=== PATIENT | female | born 1965 | race Caucasian/White ===

== ENCOUNTER 2017-01-18 12:32 | Emergency (ER) | payer MEDICAID ==
[2017-01-18 13:03] VITALS: BP 123/67
--- NOTE | 2017-01-18 13:14 | UC ---
UC General HPI - HPI Summary HPI Summary: poor po intake, decreased void, soft stool emesis this am, pale - History of Current Complaint Chief Complaint: UCGeneralIllness Stated Complaint: COUGH, FEVER, DIZZY Time Seen by Provider: 01/18/17 12:59 Hx Obtained From: Patient Onset/Duration: Sudden Onset, Lasting Days - 1, Still Present Timing: Constant Onset Severity: Moderate Current Severity: Moderate Associated Signs & Symptoms: Positive: Cough, Diarrhea - /soft stool, Vomiting - Allergy/Home Medications Allergies/Adverse Reactions: Allergies Allergy/AdvReac Type Severity Reaction Status Date / Time No Known Allergies Allergy Verified 01/18/17 14:50 PMH/Surg Hx/FS Hx/Imm Hx Previously Healthy: No - MR/DD Endocrine History: Hypothyroidism Psychological History: Depression - Surgical History Surgical History: None - Family History Known Family History: Positive: Unknown - Social History Occupation: Disabled Lives: [employer] Alcohol Use: None Substance Use Type: None Smoking Status (MU): Never Smoked Tobacco - Immunization History Most Recent Influenza Vaccination: unknown Review of Systems Constitutional: Fatigue Skin: Negative Eyes: Negative ENT: Negative Respiratory: Negative Cardiovascular: Negative Gastrointestinal: Vomiting, Diarrhea Genitourinary: Negative Motor: Negative Neurovascular: Negative Musculoskeletal: Negative Neurological: Negative Psychological: Negative Is Patient Immunocompromised?: No All Other Systems Reviewed And Are Negative: Yes Physical Exam Triage Information Reviewed: Yes Appearance: No Pain Distress, Ill-Appearing, Thin Vital Signs: Initial Vital Signs Temp 98.6 F 01/18/17 12:48 Pulse 73 01/18/17 12:48 Resp 18 01/18/17 12:48 BP 123/67 01/18/17 12:48 Pulse Ox 100 01/18/17 12:48 Vital Signs Reviewed: Yes Eye Exam: Normal Eyes: Positive: Conjunctiva Clear ENT Exam: Normal ENT: Positive: Normal ENT inspection, Hearing grossly normal, Pharynx normal, TMs normal, Muffled voice - non verbal, Uvula midline. Negative: Nasal drainage Dental Exam: Normal Neck exam: Normal Neck: Positive: Supple, Nontender, No Lymphadenopathy Respiratory Exam: Normal Respiratory: Positive: Chest non-tender, Lungs clear, Normal breath sounds, No respiratory distress, No accessory muscle use Cardiovascular Exam: Normal Cardiovascular: Positive: RRR, No Murmur, Pulses Normal, Brisk Capillary Refill Abdominal Exam: Normal Abdomen Description: Positive: Other: - appears to be aggitated with exam unable to specifically ascess pain Bowel Sounds: Positive: Present Musculoskeletal Exam: Normal Musculoskeletal: Positive: Strength Intact, ROM Intact, No Edema Neurological Exam: Normal Neurological: Positive: Alert - to her baseline Psychological Exam: Normal Skin Exam: Normal Course/Dx - Course Course Of Treatment: d/c with immediate follow up in ED for higher level evalution of patient c/o - Differential Dx - Multi-Symptom Provider Diagnoses: anemia Discharge - Discharge Plan Condition: Guarded Disposition: OTHER Discharge Disposition Comment: to [facility] [place] Patient Education Materials: Dehydration (ED) Referrals: Lona Gustafson NP [Nurse Practitioner] -
== END 2017-01-18 13:22 ==
LOC: UCEAST 12:32
DX: D64.9 Anemia, unspecified (principal)
CPT/HCPCS: 99211; G0463

== ENCOUNTER 2017-01-18 14:45 | Emergency (ER) | payer MEDICARE, MEDICAID ==
[2017-01-18] MEDS ORDERED: NS 0.9% 1000 ML* 1,000 ML IV ONE (15:12)
[2017-01-18] MEDS ORDERED: Metoclopramide IV* 5 MG/ML 2 ML VIAL IV SLOW PU ONE (15:15)
[2017-01-18] MEDS ORDERED: Haloperidol INJ IV/IM* 5 MG/ML AMP IM ONE (15:22)
[2017-01-18] MEDS ORDERED: LORazepam INJ* 2 MG/ML 1 ML VIAL IM ONE (15:23)
--- NOTE | 2017-01-18 15:39 | RAD ---
INDICATION: Fever COMPARISON: None TECHNIQUE: An AP portable view obtained at 1529 hours is submitted. FINDINGS: Bones/Soft Tissues: There are no acute bony findings. Cardiomediastinal: The cardiomediastinal silhouette is normal. Lungs: There are no infiltrates. Pleura: There are no pleural effusions. Other: None IMPRESSION: NO ACTIVE DISEASE.
[2017-01-18 16:44] LABS: Hematocrit 41 % (35-47); Hemoglobin 13.6 g/dl (12.0-16.0); Mean Corpuscular HGB Conc 33 g/dl (31-36); Mean Corpuscular Hemoglobin 33 pg (27-31); Mean Corpuscular Volume 99 fL (80-97); Mean Platelet Volume 9 um3 (7.4-10.4); Red Blood Count 4.15 10^6/ul (4.0-5.4); Red Cell Distribution Width 14 % (10.5-15); White Blood Count 8.2 10^3/ul (3.5-10.8)
[2017-01-18 16:56] LABS: ALT 16 U/L (7-52); AST 18 U/L (13-39); Albumin 3.4 g/dL (3.2-5.2); Alkaline Phosphatase 67 U/L (34-104); Amylase 14 U/L (29-103); Anion Gap 6 mmol/L (2-11); BUN/Creatinine Ratio 23.5 (8-20); Blood Urea Nitrogen 20 mg/dL (6-24); C Reactive Protein 54.78 mg/L (< 5.00); CO2 Carbon Dioxide 28 mmol/L (22-32); Calcium 8.5 mg/dL (8.6-10.3); Chloride 105 mmol/L (101-111); EGFR African American 90.3 (>60); EGFR Non-African American 70.2 (>60); Globulin 2.8 g/dL (2-4); Glucose 98 mg/dL (70-100); Lipase < 10 U/L (11.0-82.0); Magnesium 1.8 mg/dL (1.9-2.7); Potassium 3.8 mmol/L (3.5-5.0); Sodium 139 mmol/L (133-145); Total Protein 6.2 g/dL (6.4-8.9)
[2017-01-18 17:07] LABS: Urine Bacteria Absent (Absent); Urine Bilirubin Negative (Negative); Urine Glucose Negative (Negative); Urine Nitrite Negative (Negative)
[2017-01-18] MEDS ORDERED: Iohexol 300* (CONTRAST) 10 ML SDV IV ONE (17:19)
--- NOTE | 2017-01-18 18:18 | RAD ---
INDICATION: Abdominal pain COMPARISON: None TECHNIQUE: Axial source images were obtained from the hemidiaphragms to the symphysis pubis following administration of intravenous contrast only per ED request. This decreases the sensitivity of this examination. Coronal and sagittal reconstructed images were acquired. Lung bases: The lung bases are clear. Liver: The liver is normal in size. There are no masses. There is no ductal dilatation. Gallbladder: There are no calcified gallstones. There is no evidence of wall thickening or pericholecystic fluid. Spleen: The spleen is normal in size. There are no masses. Pancreas: There is no focal pancreatic mass or ductal dilatation. Adrenal glands: There is no evidence of adrenal mass. Kidneys: The kidneys are normal in size and position. There are prompt nephrograms and there is prompt excretion bilaterally. There are no renal parenchymal masses. There is no evidence of nephrolithiasis. Adenopathy: There is no evidence of adenopathy by size criteria. Fluid collections: There is a small amount of free fluid in the dependent portion of the pelvis. Vessels:There are no significant atherosclerotic changes involving the aorta. There is no focal aneurysm. The iliac vessels are normal in caliber. The IVC appears normal. GI tract: There are no acute CT bowel findings. There is no obstruction. The stomach and small bowel appear normal. The lower GI tract is normal. The cecum, ileocecal valve, and terminal ileum appear normal. The appendix is visualized and appear normal. Pelvic organs: The uterus and adnexa appear normal Bladder: There are no bladder masses. Abdominal and pelvic soft tissues: The extraperitoneal abdominal and pelvic soft tissues appear normal.. Osseous structures: There are no acute osseous findings. Other: None IMPRESSION: IMAGING WITHOUT ORAL CONTRAST SHOWS SMALL AMOUNT OF FREE FLUID IN THE CUL-DE-SAC. NO ADDITIONAL SPECIFIC CT FINDINGS.
[2017-01-18] MEDS ORDERED: Levofloxacin TAB* 250 MG PO ONE (18:29)
[2017-01-18] MEDS ORDERED: Levofloxacin TAB* 250 MG ONE (19:19)
[2017-01-18 19:29] VITALS: BP 90/57
--- NOTE | 2017-01-20 09:50 | PN ---
Progress Note - Progress Note Date of Service: 01/20/17 Note: Patient urine grew strept group B 25-50,000. likely a containment and not a significant amount culture. patient placed on levaquin which can continue.
--- NOTE | 2017-01-29 02:13 | ED ---
Magno Frye Thomas, scribed for Norma Mendieta MD on 01/18/17 at 1526 . GI/ HPI - HPI Summary HPI Summary: The pt is a 51 y/o F brought to the emergency department with nausea, vomiting, and diarrhea that began this AM. She has a history of Down Syndrome, is profoundly mentally retarded, and is minimally verbal. The HPI is obtained from her caregiver, who is present in the emergency room. She does not make her complaints known. The patient was given Tylenol this morning. Pt additionally has decreased PO intake, headache, cough, pallor, and fever. She lives at [facility] under respite care for the last 43 days. LEVEL FIVE CAVEAT: HPI LIMITED BY RETARDATION - History of Current Complaint Chief Complaint: EDGeneral Time Seen by Provider: 01/18/17 14:56 Stated Complaint: WEAKNESS COMING FROM CC Hx Obtained From: Family/Superintendent [employer] Hx From Patient Unobtainable Due To: Other - Retardation Onset/Duration: Started Hours Ago - onset this AM, Still Present Pain Intensity: 0 Associated Signs and Symptoms: Positive: Other: - N/V/D, decreased PO intake, CORONADO , cough, pallor, fever - Allergy/Home Medications Allergies/Adverse Reactions: Allergies Allergy/AdvReac Type Severity Reaction Status Date / Time No Known Allergies Allergy Verified 01/18/17 14:50 PMH/Surg Hx/FS Hx/Imm Hx Previously Healthy: No - LEVEL FIVE CAVEAT: PMH LIMITED BY RETARDATION Endocrine/Hematology History: Reports: Hx Thyroid Disease Neurological History: Reports: Other Neuro Impairments/Disorders - Hx Down syndrome Infectious Disease History: No Infectious Disease History: Denies: Traveled Outside the [place] in Last 30 Days - Family History Known Family History: Positive: Unknown - LEVEL FIVE CAVEAT: PMH LIMITED BY RETARDATION - Social History Lives: Snf Alcohol Use: None Substance Use Type: Reports: None Smoking Status (MU): Never Smoked Tobacco Review of Systems - ROS Summary Review of Systems Summary: LEVEL FIVE CAVEAT: ROS LIMITED BY RETARDATION Positive: Fever, Other - Pallor Positive: Cough Positive: Vomiting, Diarrhea, Nausea, Other - Decreased PO intake Positive: Headache All Other Systems Reviewed And Are Negative: No Physical Exam - Summary Physical Exam Summary: VITAL SIGNS: Reviewed. GENERAL: Patient is a female who is lying comfortable in the stretcher. Patient is not in any acute respiratory distress. HEAD AND FACE: No signs of trauma. No ecchymosis, hematomas or skull depressions. No sinus tenderness. EYES: PERRLA, EOMI x 2, No injected conjunctiva, no nystagmus. EARS: Hearing grossly intact. Ear canals and tympanic membranes are within normal limits. MOUTH: Oropharynx within normal limits. NECK: Supple, trachea is midline, no adenopathy, no JVD, no carotid bruit, no c- spine tenderness, neck with full ROM. CHEST: Symmetric, no tenderness at palpation LUNGS: Clear to auscultation bilaterally. No wheezing or crackles. CVS: Regular rate and rhythm, S1 and S2 present, no murmurs or gallops appreciated. ABDOMEN: Soft. She has tenderness over her abdomen, mainly her RLQ. No signs of distention. No rebound no guarding, and no masses palpated. Bowel sounds are normal. EXTREMITIES: FROM in all major joints, no edema, no cyanosis or clubbing. NEURO: No acute neurological deficits. Speech is at baseline. SKIN: Dry and warm LEVEL FIVE CAVEAT: PHYSICAL EXAM LIMITED BY RETARDATION Triage Information Reviewed: Yes Vital Signs On Initial Exam: Initial Vitals Temp Pulse Resp BP Pulse Ox 96.5 F 73 20 70/55 100 01/18/17 14:51 01/18/17 14:51 01/18/17 14:51 01/18/17 14:51 01/18/17 14:51 Vital Signs Reviewed: Yes Diagnostics - Vital Signs Vital Signs Temp Pulse Resp BP Pulse Ox 01/18/17 14:51 96.5 F 73 20 70/55 100 - Laboratory Result Diagrams: 01/18/17 16:29 01/18/17 16:29 Lab Statement: Any lab studies that have been ordered have been reviewed, and results considered in the medical decision making process. - Radiology CXR Xray Interpretation: No Acute Changes - No active disease. ED physician has reviewed this report and agrees. Radiology Interpretation Completed By: Radiologist EMIGDIO Course/Dx - Course Assessment/Plan: The pt is a 51 y/o F brought to the emergency department with nausea, vomiting, and diarrhea that began this AM. She has a history of Down Syndrome, is profoundly mentally retarded, and is minimally verbal. The HPI is obtained from her caregiver, who is present in the emergency room. She does not make her complaints known. The patient was given Tylenol this morning. Pt additionally has decreased PO intake, headache, cough, pallor, and fever. She lives at [facility] under respite care for the last 43 days. In the ED course the patient was given Haldol, IV fluids, Ativan, and Reglan. Bloodwork and urinalysis were obtained. CT Abd/Pel shows IMAGING WITHOUT ORAL CONTRAST SHOWS SMALL AMOUNT OF FREE FLUID IN THE CUL-DE-SAC. NO ADDITIONAL SPECIFIC CT FINDINGS. The patient is diagnosed with UTI. The patient is instructed to follow up with primary care. - Diagnoses Provider Diagnoses: UTI (urinary tract infection) Discharge - Discharge Plan Condition: Stable Disposition: HOME Prescriptions: Levofloxacin TAB* [Levaquin TAB*] 250 mg PO DAILY #7 tab Patient Education Materials: Urinary Tract Infection in Women (ED) Referrals: Lona Gustafson NP [Primary Care Provider] - 3 Days Additional Instructions: Follow up with your primary care physician in three days. Return to the emergency department for any new or worsening symptoms. The documentation as recorded by the Magno echols Thomas accurately reflects the service I personally performed and the decisions made by , Norma Mendieta MD.
== END 2017-01-18 19:33 | disposition home or self-care (01) ==
LOC: ED 14:45
DX: N39.0 Urinary tract infection, site not specified (principal); R11.2 Nausea with vomiting, unspecified; R19.7 Diarrhea, unspecified; R51 Headache; R05 Cough; R50.9 Fever, unspecified
CPT/HCPCS: 36415; 71010; 74177; 80053; 81003; 81015; 82150; 83605; 83690; 83735; 85025; 85610; 85730; 86140; 87040; 87077; 87086; 96372; 96374; 99284; A9270-GY; J1630; J2060; J2765; Q9967

== ENCOUNTER 2017-02-26 09:37 | Emergency (ER) | payer MEDICARE, MEDICAID ==
[2017-02-26] MEDS ORDERED: Acetaminophen TAB* 325 MG PO ONE (10:45)
--- NOTE | 2017-02-26 11:10 | RAD ---
INDICATION: Left hip pain and bruising COMPARISON: CT abdomen and pelvis dated January 18, 2017 TECHNIQUE: 3 views of the left hip were obtained. FINDINGS: The visualized bones of the left hip are well-corticated and properly aligned. The joint spaces are normal. There is no radiographic evidence of acute fracture or dislocation. IMPRESSION: Normal radiograph of the left hip. If the patient's symptoms persist follow-up imaging is recommended.
--- NOTE | 2017-02-26 11:48 | ED ---
Lower Extremity - HPI Summary HPI Summary: 51 female presents to ED with smoke room operator who states patient has been experiencing some pain with left hip while getting dressed today. States patient does fall sometimes however they do not know when or how. Patient is a new resident for the past month at [facility]. Staff noticed bruising on left hip 1 week ago. Physical Ther states it seemed to be slightly more uncomfortable and swollen today which is why they brought her in. Patient is non verbal and does not exhibit any pain. Able to bear weight and walk. No other complaints. Denies any fever/chills. Has not taken any medication. PMHx significant for down syndrome, bipolar, dementia and hypothyroid. = - History of Current Complaint Chief Complaint: EDExtremityLower Stated Complaint: LEFT HIP PAIN Hx Obtained From: Family/Physical Ther Mechanism Of Injury: Unknown Onset of Pain: Days Onset/Duration: Worse Since - this morning Severity Initially: Mild - while getting dressed this morning Severity Currently: None Pain Intensity: 0 Pain Scale Used: 0-10 Numeric Location: Is Discrete @ - left hip Character Of Pain: Sharp, Aching Associated Signs And Symptoms: Positive: Swelling, Bruising Aggravating Factor(s): Movement, Weight Bearing - favors right side Alleviating Factor(s): Rest Able to Bear Weight: Yes Legs: 1 - bruising - Allergies/Home Medications Allergies/Adverse Reactions: Allergies Allergy/AdvReac Type Severity Reaction Status Date / Time No Known Allergies Allergy Verified 01/18/17 14:50 PMH/Surg Hx/FS Hx/Imm Hx Endocrine/Hematology History: Reports: Hx Thyroid Disease Denies: Hx Diabetes Cardiovascular History: Denies: Hx Hypertension History: Denies: Hx Renal Disease Neurological History: Reports: Other Neuro Impairments/Disorders - Hx Down syndrome, dementia Psychiatric History: Reports: Hx Bipolar Disorder - Surgical History Surgery Procedure, Year, and Place: n/a - Immunization History Immunizations Up to Date: Yes Infectious Disease History: Unable to Obtain/Confirm Infectious Disease History: Denies: Traveled Outside the [place] in Last 30 Days - Family History Known Family History: Positive: Unknown - LEVEL FIVE CAVEAT: PMH LIMITED BY RETARDATION - Social History Alcohol Use: None Substance Use Type: Reports: None Smoking Status (MU): Never Smoked Tobacco Review of Systems Constitutional: Negative Cardiovascular: Negative Respiratory: Negative Positive: Arthralgia, Myalgia Positive: Bruising - left hip All Other Systems Reviewed And Are Negative: Yes Physical Exam Triage Information Reviewed: Yes Vital Signs On Initial Exam: Initial Vitals Temp Pulse Resp BP Pulse Ox 97.2 F 52 16 94/45 99 02/26/17 09:39 02/26/17 09:39 02/26/17 09:39 02/26/17 09:39 02/26/17 09:39 Vital Signs Reviewed: Yes Completion Of Physical Exam Limited Due To: Dementia, Altered Mental Status - due to down syndrome/condition Appearance: Positive: Well-Appearing, No Pain Distress, Well-Nourished Skin: Positive: Warm, Skin Color Reflects Adequate Perfusion, Dry, Other - contusion to left hip, appears to be in healing stage, green tinged color. Negative: Cold, Cyanosis @ Eyes: Positive: Conjunctiva Clear ENT: Positive: Hearing grossly normal, Pharynx normal Respiratory/Lung Sounds: Positive: Clear to Auscultation, Breath Sounds Present Cardiovascular: Positive: Normal, RRR, Pulses are Symmetrical in both Upper and Lower Extremities - 2+. Negative: Murmur, Rub Musculoskeletal: Positive: Normal, Strength/ROM Intact, Other - ecchymosis of left hip noted. Negative: Pain @, Edema Left, Edema Right Neurological: Positive: Normal - for patient, Sensory/Motor Intact, Reflexes Intact, NV Bundle Intact Distally, Normal Gait Diagnostics - Vital Signs Vital Signs Temp Pulse Resp BP Pulse Ox 02/26/17 09:39 97.2 F 52 16 94/45 99 - Laboratory Lab Statement: Any lab studies that have been ordered have been reviewed, and results considered in the medical decision making process. - Radiology left hip Xray Interpretation: No Acute Changes - Normal radiograph of the left hip. If the patient's symptoms persist follow-up imaging is recommended. Radiology Interpretation Completed By: Radiologist - myself Lower Extremity Course/Dx - Course Course Of Treatment: given tylenol and xray obtained, normal PE besides ecchymosis. negative xray. appears to be suffering from a contusion versus sprain. RICE and continue tylenol/ibuprofen for discomfort. Follow up with PCP. Aware of worsening signs and symptoms to watch out for. REquested a u/a so obtained and unremarkable. No concern for other etiolgoy at this time. Patient moving hip around normally. Normal vitals. - Diagnoses Differential Diagnosis/HQI/PQRI: Positive: Contusion, Fracture (Closed), Sprain , Strain Provider Diagnoses: Left hip pain, Contusion of left hip and thigh Discharge - Discharge Plan Condition: Stable Disposition: HOME Patient Education Materials: Contusion in Adults (ED), Hip Pain (ED) Referrals: Luci Abdi MD [Primary Care Provider] - Additional Instructions: Take tylenol/ibuprofen to help with discomfort. Rest, ice and elevate. Follow up with PCP for further evaluation and work up and recheck on symptoms. Any new or worsening symptoms please seek medical attention promptly.
[2017-02-26 12:01] LABS: Urine Appearance Cloudy; Urine Blood Negative (Negative); Urine Color Yellow; Urine Ketones Negative (Negative); Urine Protein Negative (Negative); Urine Specific Gravity 1.028 (1.010-1.030); Urine Urobilinogen Negative (Negative)
[2017-02-26 12:36] VITALS: BP 100/55
== END 2017-02-26 12:30 | disposition home or self-care (01) ==
LOC: ED 09:37
DX: S70.02XA Contusion of left hip, initial encounter (principal); S70.12XA Contusion of left thigh, initial encounter; X58.XXXA Exposure to other specified factors, initial encounter; Y92.9 Unspecified place or not applicable; Z91.81 History of falling; Q90.9 Down syndrome, unspecified; F03.90 Unspecified dementia, unspecified severity, without behavioral disturbance, psychotic disturbance, mood disturbance, and anxiety
CPT/HCPCS: 81003; 81015; 87086; 99282; A9270-GY

== ENCOUNTER 2017-02-27 17:37 | Emergency (ER) | payer MEDICARE, MEDICAID ==
[2017-02-27] MEDS ORDERED: Lidocaine 1%* 5 ML VIAL INJ ONE (20:20)
--- NOTE | 2017-02-27 20:22 | ED ---
Laceration/Wound HPI - HPI Summary HPI Summary: 51F presents with laceration to lower lip. She tripped and landed on her face and bit her lower lip. The caregiver denies any loose teeth. The caregiver states that he tooth went into her bottom lip. She has a flap of skin in her bottom lip. He caregiver denies any LOC or head injury. He states that she only bumped her chin. She has been acting normal per her caregiver. no vomiting. She has history of MR. She denies any pain. caregiver believes immunizations up to date. - History of Current Complaint Stated Complaint: FALL Time Seen by Provider: 02/27/17 20:10 Pain Intensity: 0 - Allergy/Home Medications Allergies/Adverse Reactions: Allergies Allergy/AdvReac Type Severity Reaction Status Date / Time No Known Allergies Allergy Verified 01/18/17 14:50 PMH/Surg Hx/FS Hx/Imm Hx Endocrine/Hematology History: Reports: Hx Thyroid Disease Denies: Hx Diabetes Cardiovascular History: Denies: Hx Hypertension History: Denies: Hx Renal Disease Neurological History: Reports: Other Neuro Impairments/Disorders - Hx Down syndrome, dementia Psychiatric History: Reports: Hx Bipolar Disorder - Surgical History Surgery Procedure, Year, and Place: n/a Infectious Disease History: No Infectious Disease History: Denies: Traveled Outside the [place] in Last 30 Days - Family History Known Family History: Positive: Unknown - LEVEL FIVE CAVEAT: PMH LIMITED BY RETARDATION - Social History Alcohol Use: None Substance Use Type: Reports: None Smoking Status (MU): Never Smoked Tobacco Review of Systems Negative: Fever Negative: Vomiting Positive: Other - lip laceration Negative: Headache All Other Systems Reviewed And Are Negative: Yes Physical Exam Triage Information Reviewed: Yes Vital Signs On Initial Exam: Initial Vitals Temp Pulse Resp BP Pulse Ox 98.7 F 78 20 128/78 99 02/27/17 17:47 02/27/17 17:47 02/27/17 17:47 02/27/17 17:47 02/27/17 17:47 Vital Signs Reviewed: Yes Appearance: Positive: Well-Appearing Skin: Positive: Warm, Dry, Other - 1cm flap like laceration on bottom lip Head/Face: Positive: Normal Head/Face Inspection, Other - no step off, raccoon eyes, delarosa sign, nontender jaw Eyes: Positive: Normal, EOMI, DIONNA, Conjunctiva Clear ENT: Positive: Normal ENT inspection, Pharynx normal, TMs normal Respiratory/Lung Sounds: Positive: Clear to Auscultation, Breath Sounds Present Cardiovascular: Positive: Normal, RRR Musculoskeletal: Positive: Normal Neurological: Positive: Sensory/Motor Intact, CN Intact II-III Procedures - Laceration/Wound Repair 1 Location: Other - lower lip laceration Description: Irregular Anesthesia: Lido - cedicaine topical Length, Depth and Shape: 1cm flap like Irrigated w/ Saline (ccs): 50 Laceration/Wound Explored: clean Closure: Single Layer Suture Type: Other - biosyn Number of Sutures: 2 Layer Closure?: No Diagnostics - Vital Signs Vital Signs Temp Pulse Resp BP Pulse Ox 02/27/17 19:49 97.7 F 75 16 116/89 99 02/27/17 17:47 98.7 F 78 20 128/78 99 - Laboratory Lab Statement: Any lab studies that have been ordered have been reviewed, and results considered in the medical decision making process. Laceration Repair Course/Dx - Course Course Of Treatment: 51F presents with laceration to lower lip. She tripped and landed on her face and bit her lower lip. The caregiver denies any loose teeth. The caregiver states that he tooth went into her bottom lip. She has a flap of skin in her bottom lip. He caregiver denies any LOC or head injury. He states that she only bumped her chin. She has been acting normal per her caregiver. no vomiting. She has history of MR. She denies any pain. caregiver believes immunizations up to date. on exam has 1cm flap like laceration of lower lip. attempted to place sutures and patient moved too much. used some intranasal versdad and placed 2 sutures in wound. caregiver understand and agrees with plan. - Differential Dx Differental Diagnoses: Abrasion, Avulsion, Laceration - Clinical Impression Provider Diagnoses: Lip laceration Discharge - Discharge Plan Condition: Good Disposition: HOME Patient Education Materials: Care For Your Absorbable Stitches (ED) Referrals: Luci Abdi MD [Primary Care Provider] - Additional Instructions: keep area clean Avoid acidic foods for next 5 days If can get to use mouth wash use it twice a day or use salt water to clean area Sutures will fall off on own follow up with primary within 5 days Return to ED if develop any new or worsening symptoms
[2017-02-27] MEDS ORDERED: Midazolam concentrated* 5 MG/ML 1 ml VIAL INTRANASAL ONE ×2 (21:12→21:28)
[2017-02-27 21:56] VITALS: BP 116/84
== END 2017-02-27 21:55 | disposition home or self-care (01) ==
LOC: ED 17:37
DX: S01.511A Laceration without foreign body of lip, initial encounter (principal); W19.XXXA Unspecified fall, initial encounter; Y92.9 Unspecified place or not applicable
CPT/HCPCS: 12011; 96374; 99281; J2250

== ENCOUNTER 2017-05-14 18:28 | Emergency (ER) | payer MEDICARE, MEDICAID ==
[2017-05-14] MEDS ORDERED: Tetan/Diph/Pertus SYR(Tdap)* 0.5 ML SYR(BOOSTRIX) use SYR IM ONE (20:28)
--- NOTE | 2017-05-14 20:32 | UC ---
Laceration HPI - HPI Summary HPI Summary: 51 female presents ED brought in by caregiver with complaints of a inside bottom lip laceration that she sustained just prior to arrival. Caregiver states patient tripped from a standing position landing on knees and then hitting chin on the floor causing a lip laceration from tooth. Denies any head trauma or loss of consciousness. Admits to bleeding. [facility] last tetanus is updated in 2009 according to patient's files. States had a lip laceration back in July 2016 similar. Patient is acting herself no vomiting and no other signs of trauma. Bleeding has since stopped. He did not loose teeth does not appear to have any loose teeth. Patient has history of MR and Down syndrome. No acute complaints. - History Of Current Complaint Chief Complaint: EDLacSutureRecheck Stated Complaint: FALL/MOUTH INJURY Time Seen by Provider: 05/14/17 19:44 Hx Obtained From: Family/Fuel Cell Binder - Caregiver patient lives at [facility] Laceration Location: Face - Bottom lip Mechanism Of Injury: Sharp Trauma - 2 Onset/Duration: Sudden Onset Pain Intensity: 0 Pain Scale Used: 0-10 Numeric Aggravating Factors: Nothing - Allergies/Home Medications Allergies/Adverse Reactions: Allergies Allergy/AdvReac Type Severity Reaction Status Date / Time No Known Allergies Allergy Verified 05/14/17 18:37 PMH/Surg Hx/FS Hx/Imm Hx - Additional Past Medical History Additional PMH: Past medical history: MR and Down syndrome - Surgical History Surgical History: None Surgery Procedure, Year, and Place: n/a - Family History Known Family History: Positive: Unknown - LEVEL FIVE CAVEAT: PMH LIMITED BY RETARDATION - Social History Alcohol Use: None Substance Use Type: None Smoking Status (MU): Never Smoked Tobacco - Immunization History Most Recent Influenza Vaccination: 2009, updated today 05/14/2017 Review of Systems Constitutional: Negative Skin: Other - Lip laceration Respiratory: Negative Gastrointestinal: Negative All Other Systems Reviewed And Are Negative: Yes Physical Exam Triage Information Reviewed: Yes Appearance: Well-Appearing, No Pain Distress, Well-Nourished Vital Signs: Initial Vital Signs Temp 97.7 F 05/14/17 18:31 Pulse 58 05/14/17 18:31 Resp 18 05/14/17 18:31 BP 157/86 05/14/17 18:31 Pulse Ox 100 05/14/17 18:31 Vital Signs Reviewed: Yes Eyes: Positive: Conjunctiva Clear ENT: Positive: Pharynx normal, TMs normal, Uvula midline Dental: Positive: Other: - Moist oral mucosa, dried blood noted on bottom lip, small 0.5 cm linear laceration, possible piece missing at inside of bottom lip no active bleeding difficult to examine due to patient and cooperative at times , dentition appear intact and normal. It is not full thickness and does not go all the way through, appears superficial. No active bleeding or worsening condition when manipulated Neck: Positive: Supple, Nontender Respiratory: Positive: Chest non-tender, Lungs clear, Normal breath sounds, No respiratory distress, No accessory muscle use. Negative: Crackles, Rhonchi, Wheezing Cardiovascular: Positive: RRR, No Murmur, Pulses Normal Musculoskeletal: Positive: Strength Intact, ROM Intact Neurological: Positive: Alert Skin Exam: Normal Laceration Course/Dx - Course/Dx Course Of Treatment: Attempted to irrigate laceration. Patient was not cooperative with physical exam and treatment. Discussed options with caregiver and spoke with Dr. Conner about case. On agreement that patient's laceration/ wound would heal without complication if it was not sutured. Appeared to be patient's best interest due to cooperativeness to leave laceration to heal on its own as it did not appear to be imperative to be sutured. Laceration was small and superficial without active bleeding. Swish with salt water, good oral hygiene, gentle with brushing, increase fluid intake, do not touch, swish and spell after eating and ibuprofen for pain and inflammation along with ice. Aware worsening signs and symptoms to watch out for. Follow-up with PCP in 2 days to ensure improvement. Tetanus was updated At visit. No Concerns of other trauma at this time - Differential Dx - Laceration/Wound Differental Diagnoses: Abrasion, Avulsion, Laceration Provider Diagnoses: Lip laceration - Physician Notification/Consults Discussed Patient Care With: Dr. Conner Discharge - Sign-Out/Discharge Documenting (check all that apply): Discharge - Discharge Plan Condition: Stable Disposition: HOME Patient Education Materials: Laceration (ED) Referrals: Luci Abdi MD [Primary Care Provider] - Additional Instructions: Salt water swishes. Ibuprofen for pain and inflammation. Ice for swelling. Swish an after eating. Gentle with cleaning/pressure. Avoid touch. Any new or worsening symptoms please seek medical attention. Follow up with PCP in 3 days to ensure improvement. Tetanus was updated today 05/14/2017. - Billing Disposition and Condition Condition: STABLE Disposition: HOME
[2017-05-14 20:51] VITALS: BP 0/0
== END 2017-05-14 20:50 | disposition home or self-care (01) ==
LOC: ED 18:28
DX: S01.511A Laceration without foreign body of lip, initial encounter (principal); W01.198A Fall on same level from slipping, tripping and stumbling with subsequent striking against other object, initial encounter; Y92.9 Unspecified place or not applicable; Z23 Encounter for immunization; Q90.9 Down syndrome, unspecified; F79 Unspecified intellectual disabilities
CPT/HCPCS: 90471; 90715; 99282; G0008

== ENCOUNTER 2017-05-15 11:15 | Emergency (ER) | payer MEDICARE, MEDICAID ==
[2017-05-15] MEDS ORDERED: LORazepam INJ* 2 MG/ML 1 ML VIAL IV ONE (12:01)
[2017-05-15] MEDS ORDERED: diPHENhydraMINE IV* 50 MG/ML 1 ml VIAL (BENADRYL) IM ONE (12:01)
[2017-05-15] MEDS ORDERED: Haloperidol INJ IV/IM* 5 MG/ML AMP IM ONE (12:01)
[2017-05-15] MEDS ORDERED: LORazepam INJ* 2 MG/ML 1 ML VIAL IM ONE (12:21)
[2017-05-15 13:04] LABS: ABS Basophils 0.1 10^3/ul (0-0.2); ABS Eosinophils 0 10^3/ul (0-0.6); ABS Monocytes 0.3 10^3/ul (0-0.8); ABS Neutrophils 4.5 10^3/ul (1.5-7.7); ABS Nucleated RBC 0 10^3/ul; Eosinophil % 0.5 % (0-6); Hematocrit 41 % (35-47); Hemoglobin 13.4 g/dl (12.0-16.0); Lymphocyte % 29.3 % (25-47); Mean Corpuscular HGB Conc 33 g/dl (31-36); Mean Corpuscular Hemoglobin 34 pg (27-31); Mean Corpuscular Volume 103 fL (80-97); Mean Platelet Volume 8.9 um3 (7.4-10.4); Nucleated Red Blood Cells % 0.1; Platelet Count 220 10^3/ul (150-450); Red Blood Count 3.95 10^6/ul (4.0-5.4); Red Cell Distribution Width 15 % (10.5-15)
[2017-05-15 13:14] LABS: INR 0.94 (0.77-1.02)
--- NOTE | 2017-05-15 13:20 | RAD ---
HISTORY: Repeated falls COMPARISONS: December 22, 2016 VIEWS: 1: frontal portable view of the chest at 1:05 PM FINDINGS: LINES AND TUBES: None. CARDIOMEDIASTINAL SILHOUETTE: The cardiomediastinal silhouette is normal for portable technique. PLEURA: The costophrenic angles are sharp. No pleural abnormalities are noted. LUNG PARENCHYMA: The lungs are clear. ABDOMEN: The upper abdomen is clear. There is no subphrenic gas. BONES AND SOFT TISSUES: No bone or soft tissue abnormalities are noted. IMPRESSION: NO ACTIVE CARDIOPULMONARY DISEASE.
[2017-05-15 13:25] LABS: EGFR Non-African American 62.5 (>60)
--- NOTE | 2017-05-15 14:26 | RAD ---
HISTORY: Multiple falls, altered mental status COMPARISONS: None TECHNIQUE: Multiple contiguous axial CT scans were obtained of the head without intravenous contrast. FINDINGS: HEMORRHAGE/INFARCT: There is no hemorrhage or acute infarct. MASSES/SHIFT: There is no mass or shift. EXTRA-AXIAL SPACES: There are no extra-axial fluid collections. SULCI AND VENTRICLES: There is mild diffuse enlargement of the sulci and ventricles. There is somewhat disproportionate enlargement of the ventricular system with suspected the sulcal atrophy. CEREBRUM: There are no focal parenchymal abnormalities. BRAINSTEM: There are no focal parenchymal abnormalities. CEREBELLUM: There are no focal parenchymal abnormalities. VESSELS: The vessels are grossly normal. PARANASAL SINUSES: Sinuses are atelectatic bilaterally with opacification bilaterally. ORBITS: The orbits are unremarkable. BONES AND SOFT TISSUE: No bone or soft tissue abnormalities are noted. OTHER: None IMPRESSION: 1. NO ACUTE INTRACRANIAL PATHOLOGY. 2. THERE IS DISPROPORTIONATE ENLARGEMENT OF THE VENTRICULAR SYSTEM WITH RESPECT TO THE SULCI, WHICH MAY INDICATE THE PRESENCE OF AN ADULT ONSET COMMUNICATING HYDROCEPHALUS, INCLUDING NORMAL PRESSURE HYDROCEPHALUS, AND THE CORRECT CLINICAL SETTING. 3. CHRONIC BILATERAL MAXILLARY SINUSITIS
[2017-05-15 16:52] LABS: Urine Appearance Clear; Urine Blood Negative (Negative); Urine Color Straw; Urine Ketones Negative (Negative); Urine Protein Negative (Negative); Urine Specific Gravity 1.008 (1.010-1.030); Urine Urobilinogen Negative (Negative)
--- NOTE | 2017-05-15 18:18 | ED ---
Jose Martin Frye Jennifer, scribed for Cr Conner on 05/15/17 at 1203 . Neurological HPI - HPI Summary HPI Summary: The patient is a 51 year old female who presents with multiple falls this morning. The patients manager pipeline explains that their nurse called Dr. Hernández, neurology, who sent the patient to the ED. The manager pipeline explains that the patient occasionally falls, but she fell four times this morning and once last night that cause her to hurt her lip. LEVEL 5 CAVEAT: HPI LIMITED DUE TO PT DEMENTIA. - History of Current Complaint Chief Complaint: EDGeneral Stated Complaint: FALLS-DR SENT Time Seen by Provider: 05/15/17 11:51 Hx Obtained From: Family/Pigment Pusher Hx From Patient Unobtainable Due To: Dementia Onset/Duration: Still Present Timing: Intermittent Episodes Lasting: - 4 FALLS this morning Pain Intensity: 2 Pain Scale Used: 0-10 Numeric - Allergy/Home Medications Allergies/Adverse Reactions: Allergies Allergy/AdvReac Type Severity Reaction Status Date / Time No Known Allergies Allergy Verified 05/15/17 11:24 Home Medications: Home Medications Acetaminophen TAB* [Tylenol TAB*] 650 mg PO Q6H PRN 05/15/17 [History Confirmed 05/15/17] Cholecalciferol (Vitamin D3) [Vitamin D3] 1,000 unit PO DAILY 05/15/17 [History Confirmed 05/15/17] Citalopram TAB* [CeleXA TAB*] 40 mg PO DAILY 05/15/17 [History Confirmed ] Guaifenesin/Dextromethorphan [Tussin Dm Cough Syrup] 5 ml PO Q4HR PRN 05/15/17 [ History Confirmed 05/15/17] LORazepam TAB(*) [Ativan 1 MG TAB (*)] 1 mg PO ONCE PRN 05/15/17 [History Confirmed 05/15/17] LORazepam [Ativan] 2 mg PO DAILY PRN 05/15/17 [History Confirmed 05/15/17] Levothyroxine TAB* [Synthroid TAB*] 75 mcg PO DAILY 05/15/17 [History Confirmed 05/15/17] LoraTADine TAB(NF) [Claritin 10 MG TAB(NF)] 10 mg PO DAILY 05/15/17 [History Confirmed 05/15/17] Melatonin 5 mg SL BEDTIME PRN 05/15/17 [History Confirmed 05/15/17] Simvastatin TAB(NF) [Zocor(NF)] 10 mg PO DAILY 05/15/17 [History Confirmed 05/15] carBAMazepine ER TAB(*) [TEGretol Xr TAB(*)] 200 mg PO BID 05/15/17 [History Confirmed 05/15/17] risperiDONE [Risperidone] 0.25 mg PO BID 05/15/17 [History Confirmed 05/15/17] PMH/Surg Hx/FS Hx/Imm Hx Endocrine/Hematology History: Reports: Hx Thyroid Disease Denies: Hx Diabetes Cardiovascular History: Denies: Hx Hypertension History: Denies: Hx Renal Disease Neurological History: Reports: Other Neuro Impairments/Disorders - Hx Down syndrome, dementia Psychiatric History: Reports: Hx Bipolar Disorder - Surgical History Surgery Procedure, Year, and Place: n/a - Immunization History Date of Tetanus Vaccine: 2009 Infectious Disease History: No Infectious Disease History: Denies: Traveled Outside the [place] in Last 30 Days - Family History Known Family History: Positive: Unknown - LEVEL FIVE CAVEAT: PMH LIMITED BY RETARDATION - Social History Alcohol Use: None Substance Use Type: Reports: None Smoking Status (MU): Never Smoked Tobacco Review of Systems ENT: Other - Abrasion on lip Neurological: Other - Falls All Other Systems Reviewed And Are Negative: Yes - Comments Additional Review of Systems Comments: LEVEL 5 CAVEAT: ROS LIMITED DUE TO PT DEMENTIA. Physical Exam - Summary Physical Exam Summary: Appearance: Well appearing, no pain distress Skin: warm, dry, reflects adequate perfusion Head/face: abrasion over the lips Eyes: EOMI, DIONNA ENT: normal Neck: supple, non-tender Respiratory: CTA, breath sounds present Cardiovascular: RRR, pulses symmetrical ~ Abdomen: non-tender, soft Bowel: present Musculoskeletal: normal, strength/ROM intact Neuro: normal, sensory motor intact, alert and confused Triage Information Reviewed: Yes Vital Signs On Initial Exam: Initial Vitals Temp Pulse Resp BP Pulse Ox 97.0 F 63 16 154/59 99 05/15/17 11:24 05/15/17 11:24 05/15/17 11:24 05/15/17 11:24 05/15/17 11:24 Vital Signs Reviewed: Yes Diagnostics - Vital Signs Vital Signs Temp Pulse Resp BP Pulse Ox 05/15/17 11:24 97.0 F 63 16 154/59 99 - Laboratory Lab Results: Lab Results 05/15/17 05/15/17 05/15/17 Range/Units 12:45 12:45 12:45 WBC (3.5-10.8) 10^3/ul RBC (4.0-5.4) 10^6/ul Hgb (12.0-16.0) g/dl Hct (35-47) % MCV (80-97) fL MCH (27-31) pg MCHC (31-36) g/dl RDW (10.5-15) % Plt Count (150-450) 10^3/ul MPV (7.4-10.4) um3 Neut % (Auto) (38-83) % Lymph % (Auto) (25-47) % [place] % (Auto) (0-7) % Eos % (Auto) (0-6) % Baso % (Auto) (0-2) % Absolute Neuts (auto) (1.5-7.7) 10^3/ul Absolute Lymphs (auto) (1.0-4.8) 10^3/ul Absolute Monos (auto) (0-0.8) 10^3/ul Absolute Eos (auto) (0-0.6) 10^3/ul Absolute Basos (auto) (0-0.2) 10^3/ul Absolute Nucleated RBC 10^3/ul Nucleated RBC % INR (Anticoag Therapy) 0.94 (0.77-1.02) APTT 33.1 (26.0-36.3) seconds Sodium 135 L (139-145) mmol/L Potassium TNP Chloride 103 (101-111) mmol/L Carbon Dioxide 24 (22-32) mmol/L Anion Gap 8 (2-11) mmol/L BUN 25 H (6-24) mg/dL Creatinine 0.94 (0.51-0.95) mg/dL Est GFR ( Amer) 80.4 (>60) Est GFR (Non-Af Amer) 62.5 (>60) BUN/Creatinine Ratio 26.6 H (8-20) Glucose 93 (70-100) mg/dL Lactic Acid (0.5-2.0) mmol/L Calcium 9.3 (8.6-10.3) mg/dL Magnesium TNP Total Bilirubin 0.20 (0.2-1.0) mg/dL AST TNP ALT 32 (7-52) U/L Alkaline Phosphatase 85 (34-104) U/L Total Creatine Kinase 120 (10-223) U/L Troponin I 0.00 (<0.04) ng/mL B-Natriuretic Peptide 58 ( - 100) pg/mL Total Protein 6.9 (6.4-8.9) g/dL Albumin 3.6 (3.2-5.2) g/dL Globulin 3.3 (2-4) g/dL Albumin/Globulin Ratio 1.1 (1-3) TSH 49.48 H (0.34-5.60) mcIU/mL Urine Color Urine Appearance Urine pH (5-9) Ur Specific [place] (1.010-1.030) Urine Protein (Negative) Urine Ketones (Negative) Urine Blood (Negative) Urine Nitrate (Negative) Urine Bilirubin (Negative) Urine Urobilinogen (Negative) Ur Leukocyte Esterase (Negative) Urine Glucose (Negative) Urine Ascorbic Acid (Negative) 05/15/17 05/15/17 05/15/17 Range/Units 12:45 12:45 14:04 WBC 7.0 (3.5-10.8) 10^3/ul RBC 3.95 L (4.0-5.4) 10^6/ul Hgb 13.4 (12.0-16.0) g/dl Hct 41 (35-47) % MCV 103 H (80-97) fL MCH 34 H (27-31) pg MCHC 33 (31-36) g/dl RDW 15 (10.5-15) % Plt Count 220 (150-450) 10^3/ul MPV 8.9 (7.4-10.4) um3 Neut % (Auto) 63.9 (38-83) % Lymph % (Auto) 29.3 (25-47) % [place] % (Auto) 4.8 (0-7) % Eos % (Auto) 0.5 (0-6) % Baso % (Auto) 1.5 (0-2) % Absolute Neuts (auto) 4.5 (1.5-7.7) 10^3/ul Absolute Lymphs (auto) 2.0 (1.0-4.8) 10^3/ul Absolute Monos (auto) 0.3 (0-0.8) 10^3/ul Absolute Eos (auto) 0 (0-0.6) 10^3/ul Absolute Basos (auto) 0.1 (0-0.2) 10^3/ul Absolute Nucleated RBC 0 10^3/ul Nucleated RBC % 0.1 INR (Anticoag Therapy) (0.77-1.02) APTT (26.0-36.3) seconds Sodium (139-145) mmol/L Potassium 3.7 Chloride (101-111) mmol/L Carbon Dioxide (22-32) mmol/L Anion Gap (2-11) mmol/L BUN (6-24) mg/dL Creatinine (0.51-0.95) mg/dL Est GFR ( Amer) (>60) Est GFR (Non-Af Amer) (>60) BUN/Creatinine Ratio (8-20) Glucose (70-100) mg/dL Lactic Acid 1.4 (0.5-2.0) mmol/L Calcium (8.6-10.3) mg/dL Magnesium 2.2 Total Bilirubin (0.2-1.0) mg/dL AST 30 ALT (7-52) U/L Alkaline Phosphatase (34-104) U/L Total Creatine Kinase (10-223) U/L Troponin I (<0.04) ng/mL B-Natriuretic Peptide ( - 100) pg/mL Total Protein (6.4-8.9) g/dL Albumin (3.2-5.2) g/dL Globulin (2-4) g/dL Albumin/Globulin Ratio (1-3) TSH (0.34-5.60) mcIU/mL Urine Color Urine Appearance Urine pH (5-9) Ur Specific [place] (1.010-1.030) Urine Protein (Negative) Urine Ketones (Negative) Urine Blood (Negative) Urine Nitrate (Negative) Urine Bilirubin (Negative) Urine Urobilinogen (Negative) Ur Leukocyte Esterase (Negative) Urine Glucose (Negative) Urine Ascorbic Acid (Negative) 05/15/17 Range/Units 16:36 WBC (3.5-10.8) 10^3/ul RBC (4.0-5.4) 10^6/ul Hgb (12.0-16.0) g/dl Hct (35-47) % MCV (80-97) fL MCH (27-31) pg MCHC (31-36) g/dl RDW (10.5-15) % Plt Count (150-450) 10^3/ul MPV (7.4-10.4) um3 Neut % (Auto) (38-83) % Lymph % (Auto) (25-47) % [place] % (Auto) (0-7) % Eos % (Auto) (0-6) % Baso % (Auto) (0-2) % Absolute Neuts (auto) (1.5-7.7) 10^3/ul Absolute Lymphs (auto) (1.0-4.8) 10^3/ul Absolute Monos (auto) (0-0.8) 10^3/ul Absolute Eos (auto) (0-0.6) 10^3/ul Absolute Basos (auto) (0-0.2) 10^3/ul Absolute Nucleated RBC 10^3/ul Nucleated RBC % INR (Anticoag Therapy) (0.77-1.02) APTT (26.0-36.3) seconds Sodium (139-145) mmol/L Potassium Chloride (101-111) mmol/L Carbon Dioxide (22-32) mmol/L Anion Gap (2-11) mmol/L BUN (6-24) mg/dL Creatinine (0.51-0.95) mg/dL Est GFR ( Amer) (>60) Est GFR (Non-Af Amer) (>60) BUN/Creatinine Ratio (8-20) Glucose (70-100) mg/dL Lactic Acid (0.5-2.0) mmol/L Calcium (8.6-10.3) mg/dL Magnesium Total Bilirubin (0.2-1.0) mg/dL AST ALT (7-52) U/L Alkaline Phosphatase (34-104) U/L Total Creatine Kinase (10-223) U/L Troponin I (<0.04) ng/mL B-Natriuretic Peptide ( - 100) pg/mL Total Protein (6.4-8.9) g/dL Albumin (3.2-5.2) g/dL Globulin (2-4) g/dL Albumin/Globulin Ratio (1-3) TSH (0.34-5.60) mcIU/mL Urine Color Straw Urine Appearance Clear Urine pH 6.0 (5-9) Ur Specific [place] 1.008 L (1.010-1.030) Urine Protein Negative (Negative) Urine Ketones Negative (Negative) Urine Blood Negative (Negative) Urine Nitrate Negative (Negative) Urine Bilirubin Negative (Negative) Urine Urobilinogen Negative (Negative) Ur Leukocyte Esterase Negative (Negative) Urine Glucose Negative (Negative) Urine Ascorbic Acid * A (Negative) Result Diagrams: 05/15/17 12:45 05/15/17 14:04 Lab Statement: Any lab studies that have been ordered have been reviewed, and results considered in the medical decision making process. - Radiology CXR Xray Interpretation: No Acute Changes - NO ACTIVE CARDIOPULMONARY DISEASE. Dr. Conner has reviewed this report. Radiology Interpretation Completed By: Radiologist - CT Brain CT CT Interpretation: No Acute Changes - 1. NO ACUTE INTRACRANIAL PATHOLOGY. 2. THERE IS DISPROPORTIONATE ENLARGEMENT OF THE VENTRICULAR SYSTEM WITH RESPECT TO THE SULCI, WHICH MAY INDICATE THE PRESENCE OF AN ADULT ONSET COMMUNICATING HYDROCEPHALUS, INCLUDING NORMAL PRESSURE HYDROCEPHALUS, AND THE CORRECT CLINICAL SETTING. 3. CHRONIC BILATERAL MAXILLARY SINUSITIS. Dr. Conner has reviewed this report. CT Interpretation Completed By: Radiologist - EKG 13:29 Cardiac Rate: Bradycardia EKG Rhythm: Sinus Bradycardia - 57 BPM EKG Interpretation: nonspecific ST-T changes Course/Dx - Course Course Of Treatment: The patient is a 51 year old female who presents with multiple falls this morning. She has a history of dementia and down syndrome. Bloodwork was obtained. EKG, CXR, and CT Brain were obtained. The patient is diagnosed with falls and hypothyroidism. Patient is instructed to follow up with PCP in 3 days. - Differential Dx Differential Diagnoses Neuro: Positive: Other - falls/down syndrome - Diagnoses Provider Diagnoses: Falls, Hypothyroidism, Down syndrome - Critical Care Time Critical Care Time: 30-74 min Discharge - Sign-Out/Discharge Documenting (check all that apply): Discharge - Discharge Plan Condition: Stable Disposition: HOME Patient Education Materials: Hypothyroidism (ED), Fall Prevention (ED) Referrals: Luci Abdi MD [Primary Care Provider] - 3 Days Additional Instructions: Please note: Your TSH level is high. Please follow up with your primary care physician to adjust the medications. Follow up with your primary care physician in three days. Return to the emergency department for any new or worsening symptoms. - Billing Disposition and Condition Condition: STABLE Disposition: HOME The documentation as recorded by the Jose Martin echols Jennifer accurately reflects the service I personally performed and the decisions made by , Cr Conner.
[2017-05-15 18:35] VITALS: BP 00/00
== END 2017-05-15 18:48 | disposition home or self-care (01) ==
LOC: ED 11:15
DX: S00.511A Abrasion of lip, initial encounter (principal); W19.XXXA Unspecified fall, initial encounter; Y93.9 Activity, unspecified; Y92.9 Unspecified place or not applicable; R29.6 Repeated falls; R00.1 Bradycardia, unspecified; J32.0 Chronic maxillary sinusitis; E03.9 Hypothyroidism, unspecified; Q90.9 Down syndrome, unspecified; F03.90 Unspecified dementia, unspecified severity, without behavioral disturbance, psychotic disturbance, mood disturbance, and anxiety; F31.9 Bipolar disorder, unspecified
CPT/HCPCS: 36415; 70450; 71045; 80053; 81003; 82550; 83605; 83735; 83880; 84443; 84484; 85025; 85610; 85730; 93005; 96372; 99282; J1200; J1630; J2060

== ENCOUNTER 2017-06-05 09:36 | Emergency (ER) | payer MEDICARE, MEDICAID ==
[2017-06-05] MEDS ORDERED: LORazepam INJ* 2 MG/ML 1 ML VIAL IM ONE (09:59)
[2017-06-05] MEDS ORDERED: Acetaminophen TAB* 325 MG PO ONE (10:01)
--- NOTE | 2017-06-05 11:00 | RAD ---
HISTORY: Cough, fever COMPARISONS: May 15, 2017 VIEWS: 1: frontal portable view of the chest at 10:30 AM FINDINGS: LINES AND TUBES: None. CARDIOMEDIASTINAL SILHOUETTE: The cardiomediastinal silhouette is normal for portable technique. PLEURA: The costophrenic angles are sharp. No pleural abnormalities are noted. LUNG PARENCHYMA: The lungs are clear. ABDOMEN: The upper abdomen is clear. There is no subphrenic gas. BONES AND SOFT TISSUES: No bone or soft tissue abnormalities are noted. IMPRESSION: NO ACTIVE CARDIOPULMONARY DISEASE.
[2017-06-05] MEDS ORDERED: Levofloxacin TAB* 250 MG PO ONE (11:01)
[2017-06-05] MEDS ORDERED: DOXYcycline CAP(*) 100 MG PO ONE (11:02)
--- NOTE | 2017-06-05 12:17 | ED ---
Daniel Frye Julia, scribed for Faizan Urena MD on 06/05/17 at 1000 . HPI Febrile Illness - HPI Summary HPI Summary: This patient is a 51 year old F [facility] accompanied by a steel chipper due to a fever of 102F. Her steel chipper reports a recent productive cough with yellow sputum. She has not had any Tylenol and has only been given cough medicine. Her steel chipper states she has been crying constantly. She states that the pts last visit in the ED she was given Ativan and Benadryl. Patient is unable to give a history. Pt is diagnosed with Down Syndrome and is currently crying and very agitated. - History of Current Complaint Chief Complaint: EDFever Time Seen by Provider: 06/05/17 09:52 Hx Obtained From: Patient, Family/Telecommunication Systems Designer Onset/Duration: Still Present Timing: Constant Associated Signs and Symptoms: Cough - Allergy/Home Medications Allergies/Adverse Reactions: Allergies Allergy/AdvReac Type Severity Reaction Status Date / Time No Known Allergies Allergy Verified 05/15/17 11:24 Home Medications: Home Medications Cholecalciferol TAB* [Vitamin D TAB*] 1,000 unit PO DAILY 06/05/17 [History Confirmed 06/05/17] LORazepam TAB(*) [Ativan 1 MG TAB (*)] 2 mg PO ONCE PRN 06/05/17 [History Confirmed 06/05/17] Levothyroxine TAB* [Synthroid TAB*] 100 mcg PO DAILY 06/05/17 [History Confirmed 06/05/17] diPHENhydraMINE PO* [Benadryl PO 25 MG TAB*] 25 mg PO DAILY PRN 06/05/17 [ History Confirmed 06/05/17] risperiDONE TAB* [RisperDAL*] 0.25 mg PO BID 06/05/17 [History Confirmed ] PMH/Surg Hx/FS Hx/Imm Hx Endocrine/Hematology History: Reports: Hx Thyroid Disease Denies: Hx Diabetes Cardiovascular History: Denies: Hx Hypertension History: Denies: Hx Renal Disease Neurological History: Reports: Other Neuro Impairments/Disorders - Hx Down syndrome, dementia Psychiatric History: Reports: Hx Bipolar Disorder - Surgical History Surgery Procedure, Year, and Place: n/a - Immunization History Date of Tetanus Vaccine: 2009 Infectious Disease History: No Infectious Disease History: Denies: Traveled Outside the [place] in Last 30 Days - Family History Known Family History: Positive: Unknown - Pt is unable to provide FMHX due to hx of Down Syndrome - Social History Alcohol Use: None Substance Use Type: Reports: None Smoking Status (MU): Never Smoked Tobacco Review of Systems Positive: Fever Positive: Cough All Other Systems Reviewed And Are Negative: No - Comments Additional Review of Systems Comments: Pt is unable to provide a history. Physical Exam - Summary Physical Exam Summary: Appearance: no pain distress, but is very agitated, Skin: warm, dry, reflects adequate perfusion Head/face: darkish mucous on lips Eyes: EOMI, DIONNA ENT: normal Neck: supple, non-tender Respiratory: CTA, breath sounds present, lungs sounds are diminished but difficult to hear, no respiratory distress Cardiovascular: Regular rhythm, tachycardic rate, pulses symmetrical Abdomen: non-tender, soft Bowel Sounds: present Musculoskeletal: normal, strength/ROM intact Neuro: normal, sensory motor intact, A&Ox3 Triage Information Reviewed: Yes Vital Signs On Initial Exam: Initial Vitals Temp Pulse Resp BP Pulse Ox 100.3 F 92 20 116/78 87 06/05/17 09:38 06/05/17 09:38 06/05/17 09:38 06/05/17 09:38 06/05/17 09:38 Vital Signs Reviewed: Yes Diagnostics - Vital Signs Vital Signs Temp Pulse Resp BP Pulse Ox 06/05/17 09:38 100.3 F 92 20 116/78 87 - Laboratory Lab Statement: Any lab studies that have been ordered have been reviewed, and results considered in the medical decision making process. - Radiology CXR Radiology Interpretation Completed By: ED Physician - Right middle lobe appears hazey., Radiologist - NO ACTIVE CARDIOPULMONARY DISEASE. Course/Dx - Course Course Of Treatment: Pt with cough productive of sputum with hx of pneumonia. CXR read as clear but appears to have increased opacity RML. Started oral doxycycline here. No distress. Discharge with close f/u. - Febrile Illness Differential Diagnoses: Bacteremia, Pneumonia, Other: - UTI - Diagnoses Provider Diagnoses: Cough, Fever, Right middle lobe pneumonia, Trisomy 21 syndrome Discharge - Sign-Out/Discharge Documenting (check all that apply): Discharge - Discharge Plan Condition: Good Disposition: INTERMEDIATE CARE FACILITY Prescriptions: DOXYcycline CAP(*) [DOXYcycline 100MG CAP(*)] 100 mg PO BID #20 cap guaiFENesin [Mucinex] 600 mg PO BID PRN #20 tab.er.12h PRN Reason: Cough Patient Education Materials: Bacterial Pneumonia (ED) Referrals: Luci Abdi MD [Primary Care Provider] - Additional Instructions: There may be a developing infilitrate (pneumonia) on the xray in the right middle lobe though the xray was read as negative. Tylenol/ibuprofen for fever. Keep well hydrated. REturnf if worse, not eating, lethargy, new symptoms or other concerns. Use humidifier while sleeping. Call today for appt with her doctor. - Billing Disposition and Condition Condition: GOOD Disposition: ICF The documentation as recorded by the Daniel echols Julia accurately reflects the service I personally performed and the decisions made by , Faizan Urena MD.
[2017-06-05 17:56] VITALS: BP 89/63
== END 2017-06-05 17:53 ==
LOC: ED 09:36
DX: R50.9 Fever, unspecified (principal); R05 Cough; J18.9 Pneumonia, unspecified organism; Q90.9 Down syndrome, unspecified
CPT/HCPCS: 71045; 96372; 99284; A9270-GY; J2060

== ENCOUNTER 2017-06-21 11:36 | Emergency (ER) | payer MEDICARE, MEDICAID ==
[2017-06-21] MEDS ORDERED: diPHENhydraMINE LIQ* 12.5 MG/5 ML UDC PO ONE (14:09)
[2017-06-21 14:15] LABS: ABS Basophils 0 10^3/ul (0-0.2); ABS Eosinophils 0 10^3/ul (0-0.6); ABS Lymphocytes 2.6 10^3/ul (1.0-4.8); ABS Monocytes 0.4 10^3/ul (0-0.8); ABS Neutrophils 2.9 10^3/ul (1.5-7.7); ABS Nucleated RBC 0 10^3/ul; Eosinophil % 0.4 % (0-6); Hematocrit 40 % (35-47); Hemoglobin 13.3 g/dl (12.0-16.0); Lymphocyte % 44.3 % (25-47); Mean Corpuscular HGB Conc 33 g/dl (31-36); Mean Corpuscular Hemoglobin 34 pg (27-31); Mean Corpuscular Volume 102 fL (80-97); Mean Platelet Volume 8.7 um3 (7.4-10.4); Nucleated Red Blood Cells % 0.1; Platelet Count 241 10^3/ul (150-450); Red Blood Count 3.92 10^6/ul (4.0-5.4); Red Cell Distribution Width 14 % (10.5-15); White Blood Count 5.9 10^3/ul (3.5-10.8)
--- NOTE | 2017-06-21 14:17 | RAD ---
HISTORY: Follow-up pneumonia, lethargy COMPARISONS: June 05, 2017 VIEWS: 2: Frontal and lateral views of the chest. The patient is obliqued to the right. FINDINGS: CARDIOMEDIASTINAL SILHOUETTE: The cardiomediastinal silhouette is normal. KATY: The katy are normal. PLEURA: The costophrenic angles are sharp. No pleural abnormalities are noted. LUNG PARENCHYMA: The lungs are clear. ABDOMEN: The upper abdomen is clear. There is no subphrenic gas. BONES AND SOFT TISSUES: No bone or soft tissue abnormalities are noted. OTHER: None. IMPRESSION: NO ACTIVE CARDIOPULMONARY DISEASE.
[2017-06-21 14:30] LABS: EGFR Non-African American 63.3 (>60)
[2017-06-21 15:32] VITALS: BP 110/59
--- NOTE | 2017-06-21 16:55 | ED ---
Complex/Multi-Sys Presentation - HPI Summary HPI Summary: Patient is a 51-year-old female presenting to the ED with her used car make ready worker with concerns over altered mental status. History of Down syndrome and is unable to give a good history of current present illness. Patient is crying and extremely agitated on arrival. Silk Screen Operator states she was seen 2 weeks ago in the ED and given antibiotics for a possible pneumonia, although x-ray does not show a pneumonia she was given antibiotics without relief of her altered mental status. She has been giving Tylenol without relief of symptoms. Silk Screen Operator states she has not been eating and drinking normally and does not appear to be herself, at baseline she continues to cry out frequently and she has not been doing this recently. She is normally given Benadryl for any symptoms of frustration. Silk Screen Operator denies any fevers, sweats, chills. - History Of Current Complaint Chief Complaint: EDGeneral Time Seen by Provider: 06/21/17 14:04 Hx Obtained From: Patient Onset/Duration: Sudden Onset Timing: Constant Severity Currently: Mild Severity Initially: Mild Associated Signs And Symptoms: Positive: Decreased Responsiveness - Per used car make ready worker Related History: Recent Illness - Allergies/Home Medications Allergies/Adverse Reactions: Allergies Allergy/AdvReac Type Severity Reaction Status Date / Time No Known Allergies Allergy Verified 06/21/17 11:43 PMH/Surg Hx/FS Hx/Imm Hx Previously Healthy: Yes Endocrine/Hematology History: Reports: Hx Thyroid Disease Denies: Hx Diabetes Cardiovascular History: Denies: Hx Hypertension History: Denies: Hx Renal Disease Neurological History: Reports: Other Neuro Impairments/Disorders - Hx Down syndrome, dementia Psychiatric History: Reports: Hx Bipolar Disorder - Surgical History Surgery Procedure, Year, and Place: n/a - Immunization History Date of Tetanus Vaccine: 2009 Hx Pertussis Vaccination: No Immunizations Up to Date: Unable to Obtain/Confirm Infectious Disease History: No Infectious Disease History: Denies: Traveled Outside the [place] in Last 30 Days - Family History Known Family History: Positive: Unknown - Pt is unable to provide FMHX due to hx of Down Syndrome - Social History Occupation: Unemployed Lives: [place] Alcohol Use: None Hx Substance Use: No Substance Use Type: Reports: None Hx Tobacco Use: No Smoking Status (MU): Never Smoked Tobacco Review of Systems Constitutional: Negative Negative: Fever, Chills, Fatigue, Skin Diaphoresis Negative: Dental Pain Respiratory: Negative Gastrointestinal: Negative Musculoskeletal: Negative Skin: Negative Neurological: Negative All Other Systems Reviewed And Are Negative: Yes Physical Exam Triage Information Reviewed: Yes Vital Signs On Initial Exam: Initial Vitals Temp Pulse Resp BP Pulse Ox 98.6 F 87 20 120/84 98 06/21/17 11:39 06/21/17 11:39 06/21/17 11:39 06/21/17 11:39 06/21/17 11:39 Completion Of Physical Exam Limited Due To: Altered Mental Status Appearance: Positive: Pain Distress Skin: Positive: Skin Color Reflects Adequate Perfusion Head/Face: Positive: Normal Head/Face Inspection Eyes: Positive: EOMI, Conjunctiva Clear Neck: Positive: Nontender, No Lymphadenopathy Respiratory/Lung Sounds: Positive: Breath Sounds Present Cardiovascular: Positive: RRR, Pulses are Symmetrical in both Upper and Lower Extremities Bowel Sounds: Positive: Present Musculoskeletal: Positive: Other - At baseline Neurological: Positive: Other - Unable to assess speech, however used car make ready worker states she appears to be at her baseline Psychiatric: Positive: Patient Uncooperative for Exam Diagnostics - Vital Signs Vital Signs Temp Pulse Resp BP Pulse Ox 06/21/17 15:30 97.8 F 60 16 110/59 96 06/21/17 11:39 98.6 F 87 20 120/84 98 - Laboratory Lab Results: Lab Results 06/21/17 06/21/17 06/21/17 Range/Units 14:06 14:06 14:06 WBC 5.9 (3.5-10.8) 10^3/ul RBC 3.92 L (4.0-5.4) 10^6/ul Hgb 13.3 (12.0-16.0) g/dl Hct 40 (35-47) % MCV 102 H (80-97) fL MCH 34 H (27-31) pg MCHC 33 (31-36) g/dl RDW 14 (10.5-15) % Plt Count 241 (150-450) 10^3/ul MPV 8.7 (7.4-10.4) um3 Neut % (Auto) 48.7 (38-83) % Lymph % (Auto) 44.3 (25-47) % [place] % (Auto) 6.3 (0-7) % Eos % (Auto) 0.4 (0-6) % Baso % (Auto) 0.3 (0-2) % Absolute Neuts (auto) 2.9 (1.5-7.7) 10^3/ul Absolute Lymphs (auto) 2.6 (1.0-4.8) 10^3/ul Absolute Monos (auto) 0.4 (0-0.8) 10^3/ul Absolute Eos (auto) 0 (0-0.6) 10^3/ul Absolute Basos (auto) 0 (0-0.2) 10^3/ul Absolute Nucleated RBC 0 10^3/ul Nucleated RBC % 0.1 Sodium 140 (139-145) mmol/L Potassium 4.9 (3.5-5.0) mmol/L Chloride 103 (101-111) mmol/L Carbon Dioxide 33 H (22-32) mmol/L Anion Gap 4 (2-11) mmol/L BUN 19 (6-24) mg/dL Creatinine 0.93 (0.51-0.95) mg/dL Est GFR ( Amer) 81.4 (>60) Est GFR (Non-Af Amer) 63.3 (>60) BUN/Creatinine Ratio 20.4 H (8-20) Glucose 94 (70-100) mg/dL Lactic Acid 1.7 (0.5-2.0) mmol/L Calcium 8.8 (8.6-10.3) mg/dL Result Diagrams: 06/21/17 14:06 06/21/17 14:06 Lab Statement: Any lab studies that have been ordered have been reviewed, and results considered in the medical decision making process. Complex Multi-Symp Course/Dx Course Of Treatment: During the course of treatment, the patient is evaluated for possible altered mental status. After arrival used car make ready worker states the patient appears to be back to baseline as she is screaming out and crying frequently which is known to be her baseline. X-ray obtained which shows no infiltrates suggestive of pneumonia and looks improved since 2 weeks ago. Labs are obtained which show normal acute findings. She is afebrile and other vital signs are stable. She is given Benadryl while in the ED. I discussed the results with the used car make ready worker and had stated she will need to follow-up with her PCP as this could be a failure to thrive. However, I have discussed the case with Dr. Corral and we both agree there is nothing further to do in the ED to further evaluate her recent AMS. - Diagnoses Provider Diagnoses: Failure to thrive - Physician Notifications Instructed by Provider To: Have Pt Call For Appt. - Have used car make ready worker arrange a follow-up to her PCP Discharge - Sign-Out/Discharge Documenting (check all that apply): Discharge/Admit/Transfer - Discharge Plan Condition: Stable Disposition: HOME Patient Education Materials: Failure to Thrive (ED) Referrals: Luci Abdi MD [Primary Care Provider] - Additional Instructions: Please follow up with PCP as soon as possible - Billing Disposition and Condition Condition: STABLE Disposition: HOME
--- NOTE | 2017-06-21 17:59 | UC ---
- Progress Note Progress Note: I supervised the care of the PA and performed a Hx and PE on the patient. Hx: dementia, Down syndrome not eating, and not acting right earlier. Improved now. PE: Pt fighting exam vigorously. Thin. No distress. Lungs clear. Plan: Labs, CXR unrevealing. D/C with close f/u. Course/Dx - Diagnoses Provider Diagnoses: Failure to thrive - Provider Notifications Instructed by Provider To: Have Pt Call For Appt. - Have tinning machine set up operator arrange a follow-up to her PCP Discharge - Sign-Out/Discharge Documenting (check all that apply): Discharge/Admit/Transfer - Discharge Plan Condition: Stable Disposition: HOME Patient Education Materials: Failure to Thrive (ED) Referrals: Luci Abdi MD [Primary Care Provider] - Additional Instructions: Please follow up with PCP as soon as possible - Billing Disposition and Condition Condition: STABLE Disposition: HOME
== END 2017-06-21 15:32 | disposition home or self-care (01) ==
LOC: ED 11:36
DX: R62.7 Adult failure to thrive (principal); Q90.9 Down syndrome, unspecified; F03.90 Unspecified dementia, unspecified severity, without behavioral disturbance, psychotic disturbance, mood disturbance, and anxiety; F31.9 Bipolar disorder, unspecified; E07.9 Disorder of thyroid, unspecified
CPT/HCPCS: 36415; 71046; 80048; 83605; 85025; 99282; A9270-GY

== ENCOUNTER 2019-04-10 11:37 | Emergency (ER) | payer MEDICARE, MEDICAID ==
[2019-04-10] MEDS ORDERED: Midazolam* 1 MG/ML 2 ML VIAL (2 MG) IM ONE (12:07)
--- NOTE | 2019-04-10 12:08 | ED ---
Throat Pain/Nasal Congestion - HPI Summary HPI Summary: 53 year old F presenting to [facility] accompanied by two female companions with a chief complaint of a fall resulting in the loss of a front tooth and loose teeth since earlier today. Per her visitors the patient may have hit the corner of a wall when she fell and there was a large amount of blood present after the patient's fall. The patient normally wears a helmet and ambulates independently. The patient rates the pain 4/10 in severity. Symptoms aggravated by nothing. Symptoms alleviated by nothing. Per her companions the patient is normally given Ativan prior to procedures but the patient has not had any Ativan today. Medication list reviewed. Allergy list reviewed. HPI IS LIMITED DUE TO LEVEL 5 CAVEAT - patient is non-verbal and unable to give a full history. Home Medications Medication Instructions Recorded Confirmed Type Acetaminophen TAB* [Tylenol TAB*] 650 mg PO Q6H PRN 05/15/17 06/05/17 History Citalopram TAB* [CeleXA TAB*] 40 mg PO DAILY 05/15/17 06/05/17 History Guaifenesin/Dextromethorphan 5 ml PO Q4HR PRN 05/15/17 06/05/17 History [Tussin Dm Cough Syrup] LORazepam TAB(*) [Ativan 1 MG TAB 1 mg PO ONCE PRN 05/15/17 06/05/17 History (*)] LoraTADine TAB(NF) [Claritin 10 MG 10 mg PO DAILY 05/15/17 06/05/17 History TAB(NF)] Melatonin 5 mg SL BEDTIME PRN 05/15/17 06/05/17 History Simvastatin TAB(NF) [Zocor(NF)] 10 mg PO DAILY 05/15/17 06/05/17 History carBAMazepine ER TAB(*) [TEGretol 200 mg PO BID 05/15/17 06/05/17 History Xr TAB(*)] Cholecalciferol TAB* [Vitamin D 1,000 unit PO DAILY 06/05/17 06/05/17 History TAB*] DOXYcycline CAP(*) [DOXYcycline 100 mg PO BID #20 cap 06/05/17 Rx 100MG CAP(*)] LORazepam TAB(*) [Ativan 1 MG TAB 2 mg PO ONCE PRN 06/05/17 06/05/17 History (*)] Levothyroxine TAB* [Synthroid TAB*] 100 mcg PO DAILY 06/05/17 06/05/17 History diPHENhydraMINE PO* [Benadryl PO 25 mg PO DAILY PRN 06/05/17 06/05/17 History 25 MG TAB*] guaiFENesin [Mucinex] 600 mg PO BID PRN #20 tab.er.12h 06/05/17 Rx risperiDONE TAB* [RisperDAL*] 0.25 mg PO BID 06/05/17 06/05/17 History - History of Current Complaint Chief Complaint: EDFacialInjury Time Seen by Provider: 04/10/19 11:54 Hx Obtained From: Family/Policy Value Calculator Hx From Patient Unobtainable Due To: Other - developmental delay Onset/Duration: Sudden Onset Severity: Moderate - Allergies/Home Medications Allergies/Adverse Reactions: Allergies Allergy/AdvReac Type Severity Reaction Status Date / Time No Known Allergies Allergy Verified 06/21/17 11:43 Home Medications: Home Medications Acetaminophen TAB* [Tylenol TAB*] 650 mg PO Q6H PRN 05/15/17 [History Confirmed 06/05/17] Citalopram TAB* [CeleXA TAB*] 40 mg PO DAILY 05/15/17 [History Confirmed ] Guaifenesin/Dextromethorphan [Tussin Dm Cough Syrup] 5 ml PO Q4HR PRN 05/15/17 [ History Confirmed 06/05/17] LORazepam TAB(*) [Ativan 1 MG TAB (*)] 1 mg PO ONCE PRN 05/15/17 [History Confirmed 06/05/17] LoraTADine TAB(NF) [Claritin 10 MG TAB(NF)] 10 mg PO DAILY 05/15/17 [History Confirmed 06/05/17] Melatonin 5 mg SL BEDTIME PRN 05/15/17 [History Confirmed 06/05/17] Simvastatin TAB(NF) [Zocor(NF)] 10 mg PO DAILY 05/15/17 [History Confirmed 06/05] carBAMazepine ER TAB(*) [TEGretol Xr TAB(*)] 200 mg PO BID 05/15/17 [History Confirmed 06/05/17] Cholecalciferol TAB* [Vitamin D TAB*] 1,000 unit PO DAILY 04/17/18 [History Confirmed 06/05/17] DOXYcycline CAP(*) [DOXYcycline 100MG CAP(*)] 100 mg PO BID #20 cap 06/05/17 [Rx ] LORazepam TAB(*) [Ativan 1 MG TAB (*)] 2 mg PO ONCE PRN 06/05/17 [History Confirmed 06/05/17] Levothyroxine TAB* [Synthroid TAB*] 100 mcg PO DAILY 06/05/17 [History Confirmed 06/05/17] diPHENhydraMINE PO* [Benadryl PO 25 MG TAB*] 25 mg PO DAILY PRN 06/05/17 [ History Confirmed 06/05/17] guaiFENesin [Mucinex] 600 mg PO BID PRN #20 tab.er.12h 06/05/17 [Rx] risperiDONE TAB* [RisperDAL*] 0.25 mg PO BID 06/05/17 [History Confirmed ] PMH/Surg Hx/FS Hx/Imm Hx Endocrine/Hematology History: Reports: Hx Thyroid Disease Denies: Hx Diabetes Cardiovascular History: Denies: Hx Hypertension History: Denies: Hx Renal Disease Neurological History: Reports: Other Neuro Impairments/Disorders - Hx Down syndrome, dementia Psychiatric History: Reports: Hx Bipolar Disorder - Surgical History Surgery Procedure, Year, and Place: n/a - Immunization History Date of Tetanus Vaccine: 2009 Infectious Disease History: No Infectious Disease History: Denies: Traveled Outside the [place] in Last 30 Days - Family History Known Family History: Positive: Unknown Family History: Patient is unable to provide family history. - Social History Alcohol Use: None Hx Substance Use: No Substance Use Type: Reports: None Hx Tobacco Use: No Smoking Status (MU): Never Smoked Tobacco Review of Systems - ROS Summary Review of Systems Summary: ROS IS LIMITED DUE TO LEVEL 5 CAVEAT - patient is non-verbal and unable to give a full history. Positive: Other - Tooth has fallen out; loose teeth Positive: Other - Laceration to lip All Other Systems Reviewed And Are Negative: No Physical Exam - Summary Physical Exam Summary: Constitutional: Well-developed, Well-nourished, Alert. (-) Distressed Skin: Warm, Dry HENT: Normocephalic; dried blood bilaterally nares; comlex laceration to lower lip roughly 3 cm; right second maxillary incisor is missing; 1st right maxillary incisor is loose Eyes: Conjunctiva normal Neck: Musculoskeletal ROM normal neck. (-) JVD, (-) Stridor, (-) Tracheal deviation Cardio: Rhythm regular, rate normal, Heart sounds normal; Intact distal pulses; Radial pulses are 2+ and symmetric. (-) Murmur Pulmonary/Chest wall: Effort normal. (-) Respiratory distress, (-) Wheezes, (-) Rales Abd: Soft, (-) tenderness, (-) Distension, (-) Guarding, (-) Rebound Musculoskeletal: (-) Edema Lymph: (-) Cervical adenopathy Neuro: patient is a level 5 caveat due to developmental delay, non-verbal Psych: Unable to assess due to developmental delay Triage Information Reviewed: Yes Vital Signs On Initial Exam: Initial Vitals Temp Pulse Resp BP Pulse Ox 98.1 F 0 20 000/00 0 04/10/19 11:38 04/10/19 11:38 04/10/19 11:38 04/10/19 11:38 04/10/19 11:38 Vital Signs Reviewed: Yes Completion Of Physical Exam Limited Due To: Level 5 Procedures - Procedure Summary Procedure Summary: Laceration was repaired 3 5-0 nylon sutures were applied to outer lip, 2 5-0 chromic sutures were applied to inner lip. No complications during procedure. - Sedation Patient Received Moderate/Deep Sedation with Procedure: No - Laceration/Wound Repair Laceration Location: mouth - Lower lip Anesthesia: Local, Lido Closure: Multilayer Debridement: None Suture Type: Nylon, Chromic Number of Sutures: 5 - 3 outer, 2 inner Layer Closure?: No Sterile Dressing Applied?: Yes Diagnostics - Vital Signs Vital Signs Temp Pulse Resp BP Pulse Ox 04/10/19 11:38 98.1 F 0 20 000/00 0 - Laboratory Lab Statement: Any lab studies that have been ordered have been reviewed, and results considered in the medical decision making process. - CT Maxillofacial CT CT Interpretation Completed By: Radiologist Summary of CT Findings: 1. Premaxillary soft tissue swelling with an absent right second maxillary incisor. The. right first maxillary incisor is slightly distracted from its socket. The hard palate is. intact. The TMJs are anatomically aligned. 2. Suspected nondisplaced nasal bone fractures ( correlate with point tenderness). 3. Similar ventriculomegaly and cerebral volume loss (incompletely imaged). 4. Untreated dental disease as above. 5. Stigmata of chronic sinusitis. ED physician has reviewed this report. EENT Course/Dx - Course Course Of Treatment: Patient is here after mechanical fall. Patient has Down syndrome and IDD. Patient is given 5 mg of Versed for anxiety. Patient had a CT maxillofacial showed the obvious tooth injuries and a nondisplaced nasal fracture. Patient had her through and through laceration repaired. Patient will follow up with ENT and her dentist - Diagnoses Provider Diagnoses: Fall, Dental injury, Nasal fracture Discharge ED - Sign-Out/Discharge Documenting (check all that apply): Patient Departure - Discharge Plan Condition: Stable Disposition: HOME Patient Education Materials: Care For Your Stitches (ED), Nasal Fracture (ED), Acute Dental Trauma (ED), Fall Prevention (ED) Referrals: Luci Abdi MD [Primary Care Provider] - Porfirio Rapp MD [Medical Doctor] - 3 Days Additional Instructions: Follow-up with Dr. Rapp and your dentist in the next couple of days. Eat a pureed diet until cleared by a dentist. Your stitches need to come out in 7 days. Take Motrin and Tylenol for your pain. - Billing Disposition and Condition Condition: STABLE Disposition: Home - Attestation Statements Document Initiated by Ayaanibe: Yes Documenting Scribe: Sheridan Leija Provider For Whom Lc is Documenting (Include Credential): Gabe Ramirez MD Scribe Attestation: Sheridan Frye, scribed for Gabe Ramirez MD on at 1811. Scribe Documentation Reviewed: Yes Provider Attestation: The documentation as recorded by the scribe, Sheridan Leija accurately reflects the service I personally performed and the decisions made by , Gabe Ramirez MD Status of Scribe Document: Viewed
--- OUTSIDE RECORDS SUMMARY | 2019-04-10 12:38 | XMS REPORT | Continuity of Care Document ---
:1965 External Reference #:[id number] Author Name John Stanford, OD Address [address] [place] [address] Care Team Providers Name Role Phone Pierre AbdiDO Care Team Information Board Runner [phone] Problems Description No Information Available Social History Type Date Description Comments Sex Unknown ETOH Use Never used alcohol Tobacco Use Start: Unknown Patient has never smoked Smoking Status Reviewed: 03/17/19 Patient has never smoked Allergies, Adverse Reactions, Alerts Description No Known Drug Allergies Medications Active Medications SIG Qnty Indications Ordering Provider Date Ocusoft Lid Scrub apply to outer 60units John Stanford, OD 03/19/2018 Plus eyelids Qam OU Pads Celexa Unknown 40mg Tablets Synthroid Unknown 137mcg Tablets Risperdal Unknown 0.5mg Tablets Carbatrol Unknown 200mg Caps ER 12HR Zocor Unknown 10mg Tablets Vitamin D3 Unknown 1000Unit Chewtabs Ativan take 1 tablet by Unknown 1mg Tablets mouth three times daily as needed maximum daily dose of 3 per day Amphetamine-Dextroamp Unknown hetamine 10mg Tablets Immunizations Description No Information Available Vital Signs Date Vital Result Comment Results Description No Information Available Procedures Date Code Description Status 03/17/2019 61400 Eye Exam Est Intermediate Completed Medical Devices Description No Information Available Encounters Description No Information Available Assessments Date Code Description Provider 03/17/2019 H25.813 Combined forms of age-related cataract, John Stanford, OD bilateral 03/17/2019 H52.4 Presbyopia John Stanford, RUI Plan of Treatment 03/17/2019 - John Stanford, ODH25.813 Combined forms of age-related cataract, jmzjecdupX87.4 PresbyopiaFollow up:yearly full, sooner PRN Functional Status Description No Information Available Mental Status Description No Information Available Referrals Description No Information Available
[2019-04-10] MEDS ORDERED: Midazolam concentrated* 5 MG/ML 1 ml VIAL ONE (13:00)
[2019-04-10 14:26] VITALS: BP 00/00
== END 2019-04-10 14:24 | disposition home or self-care (01) ==
LOC: ED 11:37
DX: S02.2XXA Fracture of nasal bones, initial encounter for closed fracture (principal); S09.8XXA Other specified injuries of head, initial encounter; W18.30XA Fall on same level, unspecified, initial encounter; Y92.9 Unspecified place or not applicable; E03.9 Hypothyroidism, unspecified; Q90.9 Down syndrome, unspecified; F79 Unspecified intellectual disabilities; F03.90 Unspecified dementia, unspecified severity, without behavioral disturbance, psychotic disturbance, mood disturbance, and anxiety; F31.9 Bipolar disorder, unspecified; Z79.890 Hormone replacement therapy; Z79.899 Other long term (current) drug therapy
CPT/HCPCS: 12011; 70486; 99283; J2250

== ENCOUNTER 2020-08-06 10:37 | Inpatient (IN) ==
[2020-08-06 11:18] LABS: ABS Basophils 0.1 10^3/ul (0-0.2); ABS Eosinophils 0.2 10^3/ul (0-0.6); ABS Lymphocytes 1.1 10^3/ul (1.0-4.8); ABS Monocytes 0.5 10^3/ul (0-0.8); ABS Neutrophils 9.3 10^3/ul (1.5-7.7); Eosinophil % 1.4 %; Hematocrit 36 % (35-47); Hemoglobin 11.9 g/dL (12.0-16.0); Lymphocyte % 9.9 %; Mean Corpuscular HGB Conc 33 g/dL (31-36); Mean Corpuscular Hemoglobin 32 pg (27-31); Mean Corpuscular Volume 97 fL (80-97); Mean Platelet Volume 8.7 fL (7.4-10.4); Platelet Count 375 10^3/uL (150-450); Red Blood Count 3.75 10^6 /uL (3.70-4.87); Red Cell Distribution Width 16 % (10-15); White Blood Count 11.1 10^3/uL (3.5-10.8)
[2020-08-06 11:37] LABS: ALT 12 U/L (7-52); AST 14 U/L (13-39); Albumin 3.5 g/dL (3.2-5.2); Alkaline Phosphatase 88 U/L (35-149); Anion Gap 5 mmol/L (2-11); Blood Urea Nitrogen 16 mg/dL (6-24); CO2 Carbon Dioxide 29 mmol/L (22-32); Calcium 8.6 mg/dL (8.6-10.3); Chloride 93 mmol/L (101-111); EGFR African American 123.2 (>60); EGFR Non-African American 101.8 (>60); Globulin 3.5 g/dL (2-4); Glucose 103 mg/dL (70-100); Lipase < 10 U/L (11.0-82.0); Potassium 4.1 mmol/L (3.5-5.0); Sodium 127 mmol/L (135-145)
[2020-08-06] MEDS ORDERED: Levofloxacin 750 MG IVPREMIX 750 MG/150 ML BAG IVPB ONE (12:58)
[2020-08-06] MEDS ORDERED: Ondansetron 4 mg VIAL 2 MG/ML 2 ml VIAL IV PRN (16:00)
[2020-08-06] MEDS ORDERED: Enoxaparin 40 MG/0.4 ML SYR SUBCUT SCH (16:00)
[2020-08-06] MEDS ORDERED: NS 0.9% 1000 ml BAG 1,000 ML IV SCH (16:00)
[2020-08-06 17:14] LABS: Folate > 20.00 ng/mL (5.90-24.80)
[2020-08-06 17:15] LABS: Vitamin B12 393 pg/mL (180-914)
[2020-08-06 20:25] LABS: TSH Ultra Thyroid Stim Horm 0.21 mcIU/mL (0.34-5.60)
[2020-08-06] MEDS: CARBAMAZEPINE FEED TUBE SCH (21:58)
[2020-08-06] MEDS: levETIRAcetam LIQ 500 MG/5 ML UDC FEED TUBE SCH (22:06)
[2020-08-06] MEDS: Heparin 5000 UNITS/ML 1 mL VIAL SUBCUT SCH (22:10)
[2020-08-07 04:35] LABS: ABS Basophils 0.1 10^3/ul (0-0.2); ABS Eosinophils 0.4 10^3/ul (0-0.6); ABS Lymphocytes 1.5 10^3/ul (1.0-4.8); ABS Monocytes 0.5 10^3/ul (0-0.8); ABS Neutrophils 5.6 10^3/ul (1.5-7.7); Hematocrit 35 % (35-47); Hemoglobin 11.8 g/dL (12.0-16.0); Lymphocyte % 19.2 %; Mean Corpuscular HGB Conc 34 g/dL (31-36); Mean Corpuscular Hemoglobin 32 pg (27-31); Mean Corpuscular Volume 95 fL (80-97); Mean Platelet Volume 8.9 fL (7.4-10.4); Platelet Count 344 10^3/uL (150-450); Red Blood Count 3.63 10^6 /uL (3.70-4.87); Red Cell Distribution Width 16 % (10-15)
[2020-08-07 04:50] LABS: Calcium 9.2 mg/dL (8.6-10.3); EGFR African American 116.6 (>60); EGFR Non-African American 96.3 (>60)
[2020-08-07] MEDS ORDERED: levETIRAcetam 500 MG IVPREMIX 500 MG/100 ML BAG IV ONE (11:18)
[2020-08-07] MEDS: Heparin 5000 UNITS/ML 1 mL VIAL SUBCUT SCH ×2 (11:29→20:19)
[2020-08-07] MEDS: [UNRECOGNIZED DRUG - OTHER] TOPICAL SCH (11:35)
[2020-08-07] MEDS: levETIRAcetam LIQ 500 MG/5 ML UDC FEED TUBE SCH ×2 (11:43→20:20)
[2020-08-07] MEDS: CARBAMAZEPINE FEED TUBE SCH ×2 (15:46→20:19)
[2020-08-07] MEDS: Lansoprazole SUSP ORALSYR 3 MG/ML G TUBE SCH (15:46)
[2020-08-07] MEDS: Docusate LIQ 100 MG/10 ML UDC G TUBE SCH (15:48)
[2020-08-07] MEDS: NS 0.9% 1000 ml BAG 1,000 ML IV SCH (17:58)
[2020-08-08 08:45] LABS: Calcium 9.3 mg/dL (8.6-10.3); EGFR African American 141.8 (>60); EGFR Non-African American 117.2 (>60)
[2020-08-08] MEDS: levETIRAcetam LIQ 500 MG/5 ML UDC FEED TUBE SCH ×2 (09:20→21:52)
[2020-08-08] MEDS: CARBAMAZEPINE FEED TUBE SCH ×2 (09:20→21:52)
[2020-08-08] MEDS: Docusate LIQ 100 MG/10 ML UDC G TUBE SCH (09:20)
[2020-08-08] MEDS: [UNRECOGNIZED DRUG - OTHER] TOPICAL SCH (09:21)
[2020-08-08] MEDS: Lansoprazole SUSP ORALSYR 3 MG/ML G TUBE SCH (09:21)
[2020-08-08] MEDS: Heparin 5000 UNITS/ML 1 mL VIAL SUBCUT SCH ×2 (09:21→21:52)
[2020-08-08] MEDS: NS 0.9% 1000 ml BAG 1,000 ML IV SCH (16:01)
[2020-08-08] MEDS ORDERED: LORazepam 2 mg VIAL 1 ml IV PUSH ONE (17:29)
[2020-08-08] MEDS ORDERED: Lorazepam PYXIS KEY PRN (17:29)
[2020-08-09] MEDS: Heparin 5000 UNITS/ML 1 mL VIAL SUBCUT SCH ×2 (09:29→22:51)
[2020-08-09] MEDS: [UNRECOGNIZED DRUG - OTHER] TOPICAL SCH (09:29)
[2020-08-09] MEDS: Lansoprazole SUSP ORALSYR 3 MG/ML G TUBE SCH (09:30)
[2020-08-09] MEDS: CARBAMAZEPINE FEED TUBE SCH ×2 (09:30→22:39)
[2020-08-09] MEDS: levETIRAcetam LIQ 500 MG/5 ML UDC FEED TUBE SCH ×2 (09:30→22:39)
[2020-08-09] MEDS: Docusate LIQ 100 MG/10 ML UDC G TUBE SCH (09:30)
[2020-08-09 12:03] LABS: INR 1.1 (0.82-1.09)
[2020-08-09] MEDS ORDERED: fentaNYL 100 mcg/2 ml 50 MCG/ML VIAL ONE (14:21)
[2020-08-09] MEDS ORDERED: Midazolam 2 mg/2 ml VIAL 1 mg/ml 2 ml VIAL (2 mg) ONE (14:21)
[2020-08-10] MEDS: levETIRAcetam LIQ 500 MG/5 ML UDC FEED TUBE SCH ×2 (10:01→23:01)
[2020-08-10] MEDS: Heparin 5000 UNITS/ML 1 mL VIAL SUBCUT SCH ×2 (10:02→23:03)
[2020-08-10] MEDS: Lansoprazole SUSP ORALSYR 3 MG/ML G TUBE SCH (10:02)
[2020-08-10] MEDS: Docusate LIQ 100 MG/10 ML UDC G TUBE SCH (10:02)
[2020-08-10] MEDS: [UNRECOGNIZED DRUG - OTHER] TOPICAL SCH (10:03)
[2020-08-10] MEDS: NS 0.9% 1000 ml BAG 1,000 ML IV SCH (10:09)
[2020-08-10] MEDS: CARBAMAZEPINE FEED TUBE SCH ×2 (10:37→23:02)
[2020-08-10 13:18] LABS: Hematocrit 38 % (35-47); Hemoglobin 12.9 g/dL (12.0-16.0); Mean Corpuscular HGB Conc 34 g/dL (31-36); Mean Corpuscular Hemoglobin 33 pg (27-31); Mean Corpuscular Volume 97 fL (80-97); Platelet Count 320 10^3/uL (150-450); Red Blood Count 3.91 10^6 /uL (3.70-4.87); Red Cell Distribution Width 16 % (10-15); White Blood Count 4.4 10^3/uL (3.5-10.8)
[2020-08-10 14:25] LABS: Albumin 3.2 g/dL (3.2-5.2); Albumin/Globulin Ratio 0.9 (1-3); Calcium 8.8 mg/dL (8.6-10.3); EGFR African American 144.9 (>60); EGFR Non-African American 119.8 (>60); Globulin 3.4 g/dL (2-4); Magnesium 1.7 mg/dL (1.9-2.7); Phosphorus 3.2 mg/dL (2.5-5.0); Potassium 3.8 mmol/L (3.5-5.0); Total Bilirubin 0.3 mg/dL (0.2-1.0); Total Protein 6.6 g/dL (6.4-8.9)
[2020-08-11] MEDS: NS 0.9% 1000 ml BAG 1,000 ML IV SCH (03:38)
[2020-08-11 07:43] VITALS: BP 128/55
[2020-08-11] MEDS: [UNRECOGNIZED DRUG - OTHER] TOPICAL SCH (09:30)
[2020-08-11] MEDS: levETIRAcetam LIQ 500 MG/5 ML UDC FEED TUBE SCH (09:37)
[2020-08-11] MEDS: Docusate LIQ 100 MG/10 ML UDC G TUBE SCH (09:37)
[2020-08-11] MEDS: Lansoprazole SUSP ORALSYR 3 MG/ML G TUBE SCH (09:37)
[2020-08-11] MEDS: Heparin 5000 UNITS/ML 1 mL VIAL SUBCUT SCH (09:44)
[2020-08-11] MEDS: CARBAMAZEPINE FEED TUBE SCH (10:00)
== END 2020-08-11 11:05 | disposition home or self-care (01) ==
LOC: ED 10:37 → MEDTELE 18:19
PROVIDERS: ADMIT Internal Medicine; ATTEND Internal Medicine

== ENCOUNTER 2020-09-29 13:38 | Inpatient (IN) ==
[2020-09-29] MEDS ORDERED: Ondansetron 4 mg VIAL 2 MG/ML 2 ml VIAL IV PRN (16:13)
[2020-09-29] MEDS: NS 0.9% 1000 ml BAG 1,000 ML IV SCH ×2 (16:54→21:02)
[2020-09-29] MEDS ORDERED: Pantoprazole VIAL 40 MG VIAL IV SCH (17:00)
[2020-09-29] MEDS ORDERED: Enoxaparin 30 MG/0.3 ML SYR SUBCUT SCH (17:00)
[2020-09-29 17:01] LABS: ABS Basophils 0.1 10^3/ul (0-0.2); Hematocrit 32 % (35-47); Hemoglobin 10.2 g/dL (12.0-16.0); Lymphocyte % 16.3 %; Mean Corpuscular HGB Conc 32 g/dL (31-36); Mean Corpuscular Hemoglobin 30 pg (27-31); Mean Corpuscular Volume 93 fL (80-97); Mean Platelet Volume 7.7 fL (7.4-10.4); Platelet Count 606 10^3/uL (150-450); Red Blood Count 3.43 10^6 /uL (3.70-4.87); Red Cell Distribution Width 16 % (10-15); White Blood Count 12.2 10^3/uL (3.5-10.8)
[2020-09-29 17:18] LABS: ALT 32 U/L (7-52); Albumin 2.9 g/dL (3.2-5.2); Albumin/Globulin Ratio 0.7 (1-3); Alkaline Phosphatase 252 U/L (35-149); Blood Urea Nitrogen 26 mg/dL (6-24); CO2 Carbon Dioxide 29 mmol/L (22-32); Calcium 8.7 mg/dL (8.6-10.3); Chloride 91 mmol/L (101-111); EGFR African American 52.7 (>60); EGFR Non-African American 43.5 (>60); Globulin 4.1 g/dL (2-4); Glucose 122 mg/dL (70-100); Sodium 126 mmol/L (135-145)
[2020-09-29 17:23] LABS: Anion Gap 6 mmol/L (2-11)
[2020-09-29] MEDS ORDERED: Cefepime ADVAN 1 GM in NS 0.9% 50 ML 50 ML IVPB SCH (19:00)
[2020-09-29] MEDS: levETIRAcetam 500 MG IVPREMIX 500 MG/100 ML BAG IV SCH (21:02)
[2020-09-29] MEDS: metroNIDAZOLE IV 500 MG/100ML 500 MG/100 ML BAG IVPB SCH (21:17)
[2020-09-29] MEDS: Cefepime 1 GM in Dextrose 1 GM/50 ML BAG IV SCH (23:03)
[2020-09-29] MEDS ORDERED: Glycopyrrolate IV 0.2 MG/ML 1 ML VIAL IV SLOW PU ONE (23:31)
[2020-09-30] MEDS: levETIRAcetam 500 MG IVPREMIX 500 MG/100 ML BAG IV SCH ×2 (05:16→17:26)
[2020-09-30] MEDS ORDERED: Levothyroxine 100 MCG/5 ML VIAL IV SCH (06:00)
[2020-09-30 06:05] LABS: ABS Basophils 0.1 10^3/ul (0-0.2); ABS Lymphocytes 1.1 10^3/ul (1.0-4.8); ABS Monocytes 0.7 10^3/ul (0-0.8); ABS Neutrophils 6.4 10^3/ul (1.5-7.7); Eosinophil % 0.2 %; Hematocrit 32 % (35-47); Hemoglobin 10.5 g/dL (12.0-16.0); Lymphocyte % 13.1 %; Mean Corpuscular HGB Conc 34 g/dL (31-36); Mean Corpuscular Hemoglobin 31 pg (27-31); Mean Corpuscular Volume 93 fL (80-97); Mean Platelet Volume 7.8 fL (7.4-10.4); Nucleated Red Blood Cells % 0.1; Platelet Count 476 10^3/uL (150-450); Red Blood Count 3.38 10^6 /uL (3.70-4.87); Red Cell Distribution Width 15 % (10-15); White Blood Count 8.3 10^3/uL (3.5-10.8)
[2020-09-30 06:29] LABS: C Reactive Protein 264.58 mg/L (<8.01); Calcium 8.6 mg/dL (8.6-10.3); EGFR African American 78.4 (>60); EGFR Non-African American 64.8 (>60); Potassium 4.2 mmol/L (3.5-5.0)
[2020-09-30] MEDS: Cefepime 1 GM in Dextrose 1 GM/50 ML BAG IV SCH (08:40)
[2020-09-30] MEDS: metroNIDAZOLE IV 500 MG/100ML 500 MG/100 ML BAG IVPB SCH (09:11)
[2020-09-30 13:27] LABS: Urine Appearance Clear; Urine Bilirubin Negative (Negative); Urine Blood Negative (Negative); Urine Color Yellow; Urine Glucose Negative (Negative); Urine Ketones Negative (Negative); Urine Nitrite Negative (Negative); Urine Protein Negative (Negative); Urine Specific Gravity 1.021 (1.002-1.030); Urine Urobilinogen Negative (Negative)
[2020-09-30 13:30] LABS: Urine Bacteria 1+ (Absent); Urine Red Blood Cell Trace(0-2/hpf) (Absent); Urine Squamous Epithelial Cell Present (Absent); Urine White Blood Cell 1+(6-10/hpf) (Absent)
[2020-09-30] MEDS: Morphine 2 MG/ML SYRINGE IV PRN (21:54)
[2020-10-01] MEDS: levETIRAcetam 500 MG IVPREMIX 500 MG/100 ML BAG IV SCH ×2 (05:25→17:32)
[2020-10-01] MEDS: Morphine 2 MG/ML SYRINGE IV PRN (20:04)
[2020-10-02] MEDS: levETIRAcetam 500 MG IVPREMIX 500 MG/100 ML BAG IV SCH ×2 (06:05→17:18)
[2020-10-02] MEDS: Morphine 2 MG/ML SYRINGE IV PRN ×2 (14:13→21:24)
[2020-10-02] MEDS ORDERED: Scopolamine PATCH Remove NOTE PATCH OFF SCH (15:00)
[2020-10-03] MEDS: Morphine 2 MG/ML SYRINGE IV PRN ×3 (03:47→22:19)
[2020-10-03] MEDS: levETIRAcetam 500 MG IVPREMIX 500 MG/100 ML BAG IV SCH ×2 (04:01→17:32)
[2020-10-04] MEDS: levETIRAcetam 500 MG IVPREMIX 500 MG/100 ML BAG IV SCH (04:55)
[2020-10-04] MEDS: Morphine 2 MG/ML SYRINGE IV PRN (15:01)
[2020-10-04] MEDS: levETIRAcetam LIQ 500 MG/5 ML UDC G TUBE SCH (21:22)
[2020-10-05] MEDS: levETIRAcetam LIQ 500 MG/5 ML UDC G TUBE SCH (07:44)
[2020-10-05 07:50] VITALS: BP 146/88
== END 2020-10-05 09:05 | disposition hospice, inpatient (51) | DRG 951 ==
LOC: ED 13:38 → SUATTDRO 17:43 → MED 17:43
PROVIDERS: ADMIT Hospitalist; ATTEND Internal Medicine